=== PATIENT | female | born 1930 | race Caucasian/White ===

== ENCOUNTER → 2016-04-05 | Outpatient (CLI) | payer MEDICARE, OTHER ==
--- NOTE | 2016-04-05 11:32 | XR ---
EXAMINATION TYPE: XR chest 2V DATE OF EXAM: 04/05/2016 11:17 AM COMPARISON: Chest x-ray December 30, 2014. HISTORY: Chronic dry cough. TECHNIQUE: Frontal and lateral views of the chest are obtained. FINDINGS: There is chronic parenchymal change bilaterally without suspicious focal air space opacity , pleural effusion, or pneumothorax seen. The cardiac silhouette size is stable and mildly enlarged with atherosclerotic thoracic aorta. The osseous structures are somewhat demineralized. Soft tissue calcifications right breast are redemonstrated. IMPRESSION: Chronic changes and cardiomegaly without acute pulmonary process.
== END | disposition home or self-care (01) ==
LOC: RADXRMAIN 11:01
PROVIDERS: ATTEND Internal Medicine
DX: I51.7 Cardiomegaly (principal)
CPT/HCPCS: 71020

== ENCOUNTER 2016-04-14 09:52 | Inpatient (IN) | payer MEDICARE, OTHER ==
[2016-04-14] MEDS ORDERED: methylPREDNISolone SOD SUCCI 125 MG/2 ML VIAL IV STA (10:19)
[2016-04-14] MEDS ORDERED: ACETAMINOPHEN TAB 500 MG TAB PO STA (10:19)
[2016-04-14] MEDS ORDERED: IPRATROPIUM-ALBUTEROL 3 ML NEB INHALATION STA ×2 (10:19→11:35)
[2016-04-14] MEDS ORDERED: IBUPROFEN IV 600 MG in SODIUM CHLORIDE 0.9% 250 ML IV STA (10:21)
--- NOTE | 2016-04-14 10:23 | ED ---
General Adult HPI - General Chief complaint: Upper Respiratory Infection Stated complaint: COUGH, LEIDA Time Seen by Provider: 04/14/16 10:00 Source: patient, RN notes reviewed Mode of arrival: wheelchair Limitations: no limitations - History of Present Illness Initial comments: This is an 85-year-old female who presents emergency department with a history of diabetes. Patient comes in today because she's been coughing for the last 2- 3 days and is getting worse. Patient states she's also been short of breath. Patient states she's also coughing up quite a bit of sputum. Patient denies any chest pain or palpitations. Patient denies knowing that she has a fever though she has felt warm. Patient denies any abdominal pain patient denies any nausea vomiting or diarrhea. Patient denies any back pain. Patient denies headache patient denies any numbness weakness. Patient does states she is fatigued and very tired. Patient denies any focal weakness or numbness. Patient denies any lightheadedness or dizziness or near syncopal episode. - Related Data Allergies Allergy/AdvReac Type Severity Reaction Status Date / Time sertraline [From Zoloft] Allergy Rash/Hives Verified 04/14/16 10:03 Review of Systems ROS Statement: Those systems with pertinent positive or pertinent negative responses have been documented in the HPI. ROS Other: All systems not noted in ROS Statement are negative. Past Medical History Past Medical History: Atrial Fibrillation, Heart Failure, Diabetes Mellitus, Hyperlipidemia, Hypertension History of Any Multi-Drug Resistant Organisms: None Reported Past Surgical History: Appendectomy, Cholecystectomy, Hysterectomy Past Psychological History: Depression Smoking Status: Former smoker Past Alcohol Use History: None Reported Past Drug Use History: None Reported General Exam - General Exam Comments Initial Comments: GENERAL: Patient is well-developed and well-nourished. Patient is nontoxic and well- hydrated and is in mild distress. ENT: Neck is soft and supple. No significant lymphadenopathy is noted. Oropharynx is clear. Moist mucous membranes. Neck has full range of motion without eliciting any pain. EYES: The sclera were anicteric and conjunctiva were pink and moist. Extraocular movements were intact and pupils were equal round and reactive to light. Eyelids were unremarkable. PULMONARY: Patient is wheezing bilaterally CARDIOVASCULAR: There is a regular rate and rhythm without any murmurs gallops or rubs. ABDOMEN: Soft and nontender with normal bowel sounds. No palpable organomegaly was noted. There is no palpable pulsatile mass. SKIN: Skin is clear with no lesions or rashes and otherwise unremarkable. NEUROLOGIC: Patient is alert and oriented x3. Cranial nerves II through XII are grossly intact. Motor and sensory are also intact. Normal speech, volume and content. Symmetrical smile. MUSCULOSKELETAL: Normal extremities with adequate strength and full range of motion. No lower extremity swelling or edema. No calf tenderness. LYMPHATICS: No significant lymphadenopathy is noted PSYCHIATRIC: Normal psychiatric evaluation. Normal interpersonal interactions appears functionally intact in deals appropriately with others. No signs of depression. No signs of anxiety. Limitations: no limitations Course Vital Signs 04/14/16 04/14/16 04/14/16 09:56 10:28 10:37 Temperature 100.5 F H Pulse Rate 139 H 124 H 133 H Respiratory 20 Rate Blood Pressure 181/91 O2 Sat by Pulse 94 L Oximetry Medical Decision Making - Medical Decision Making EKG shows atrial fibrillation at 130 beats a minute QRS is 82 QT interval 08 QTC is 453. Patient's EKG shows no ST segment elevation or depression or T- wave abdomen is noted. I compared this to an old EKG aside from the right there are no acute abnormalities. I went back into reevaluate the patient and she was still wheezing but was feeling better however she was still a bit tachycardic as well and it was at this time with her age and the fact that she was already on antibiotics as an outpatient I decided to admit her I spoke with Dr. Valenzuela and he agreed to admit the patient I wrote admitting orders Chest x-ray showed no acute abnormality - Lab Data Result diagrams: 04/14/16 10:20 04/14/16 10:20 Lab Results 04/14/16 04/14/16 04/14/16 Range/Units 10:20 10:20 10:20 WBC 3.5 L (3.8-10.6) k/uL RBC 3.98 (3.80-5.40) m/uL Hgb 12.5 (11.4-16.0) gm/dL Hct 36.8 (34.0-46.0) % MCV 92.4 (80.0-100.0) fL MCH 31.3 (25.0-35.0) pg MCHC 33.9 (31.0-37.0) g/dL RDW 13.6 (11.5-15.5) % Plt Count 130 L (150-450) k/uL Neutrophils % (Manual) 73.0 % Band Neutrophils % 2.0 % Lymphocytes % (Manual) 19.0 % Monocytes % (Manual) 5.0 % Basophils % (Manual) 1.0 % Neutrophils # (Manual) 2.6 (1.3-7.7) k/uL Lymphocytes # (Manual) 0.7 L (1.0-4.8) k/uL Monocytes # (Manual) 0.2 (0-1.0) k/uL Basophils # (Manual) 0.0 (0-0.2) k/uL Nucleated RBCs 0 (0-0) /100 WBC Manual Slide Review Performed Poikilocytosis (manual Present PT (9.0-12.0) sec INR (<1.1) APTT (22.0-30.0) sec Sodium (137-145) mmol/L Potassium (3.5-5.1) mmol/L Chloride (98-107) mmol/L Carbon Dioxide (22-30) mmol/L Anion Gap mmol/L BUN (7-17) mg/dL Creatinine (0.52-1.04) mg/dL Est GFR (MDRD) Af Amer (>60 ml/min/1.73 sqM) Est GFR (MDRD) Non-Af (>60 ml/min/1.73 sqM) Glucose (74-99) mg/dL POC Glucose (mg/dL) (75-99) mg/dL POC Glu Form Layer ID Plasma Lactic Acid Mickey 1.4 (0.7-2.0) mmol/L Calcium (8.4-10.2) mg/dL Magnesium (1.6-2.3) mg/dL Total Bilirubin (0.2-1.3) mg/dL AST (14-36) U/L ALT (9-52) U/L Alkaline Phosphatase (38-126) U/L Total Creatine Kinase 137 H (30-135) U/L CK-MB (CK-2) 1.2 (0.0-2.4) ng/mL CK-MB (CK-2) Rel Index 0.9 Troponin I 0.018 (0.000-0.034) ng/mL NT-Pro-B Natriuret Pep pg/mL Total Protein (6.3-8.2) g/dL Albumin (3.5-5.0) g/dL 04/14/16 04/14/16 04/14/16 Range/Units 10:20 10:20 10:20 WBC (3.8-10.6) k/uL RBC (3.80-5.40) m/uL Hgb (11.4-16.0) gm/dL Hct (34.0-46.0) % MCV (80.0-100.0) fL MCH (25.0-35.0) pg MCHC (31.0-37.0) g/dL RDW (11.5-15.5) % Plt Count (150-450) k/uL Neutrophils % (Manual) % Band Neutrophils % % Lymphocytes % (Manual) % Monocytes % (Manual) % Basophils % (Manual) % Neutrophils # (Manual) (1.3-7.7) k/uL Lymphocytes # (Manual) (1.0-4.8) k/uL Monocytes # (Manual) (0-1.0) k/uL Basophils # (Manual) (0-0.2) k/uL Nucleated RBCs (0-0) /100 WBC Manual Slide Review Poikilocytosis (manual PT 25.1 H (9.0-12.0) sec INR 2.6 (<1.1) APTT 34.4 H (22.0-30.0) sec Sodium 129 L (137-145) mmol/L Potassium 4.5 (3.5-5.1) mmol/L Chloride 90 L (98-107) mmol/L Carbon Dioxide 27 (22-30) mmol/L Anion Gap 12 mmol/L BUN 14 (7-17) mg/dL Creatinine 0.67 (0.52-1.04) mg/dL Est GFR (MDRD) Af Amer >60 (>60 ml/min/1.73 sqM) Est GFR (MDRD) Non-Af >60 (>60 ml/min/1.73 sqM) Glucose 143 H (74-99) mg/dL POC Glucose (mg/dL) (75-99) mg/dL POC Glu Form Layer ID Plasma Lactic Acid Mickey (0.7-2.0) mmol/L Calcium 8.4 (8.4-10.2) mg/dL Magnesium 2.0 (1.6-2.3) mg/dL Total Bilirubin 1.0 (0.2-1.3) mg/dL AST 85 H (14-36) U/L ALT 45 (9-52) U/L Alkaline Phosphatase 91 (38-126) U/L Total Creatine Kinase (30-135) U/L CK-MB (CK-2) (0.0-2.4) ng/mL CK-MB (CK-2) Rel Index Troponin I (0.000-0.034) ng/mL NT-Pro-B Natriuret Pep 1520 pg/mL Total Protein 6.9 (6.3-8.2) g/dL Albumin 4.1 (3.5-5.0) g/dL /05/28 Range/Units 11:19 WBC (3.8-10.6) k/uL RBC (3.80-5.40) m/uL Hgb (11.4-16.0) gm/dL Hct (34.0-46.0) % MCV (80.0-100.0) fL MCH (25.0-35.0) pg MCHC (31.0-37.0) g/dL RDW (11.5-15.5) % Plt Count (150-450) k/uL Neutrophils % (Manual) % Band Neutrophils % % Lymphocytes % (Manual) % Monocytes % (Manual) % Basophils % (Manual) % Neutrophils # (Manual) (1.3-7.7) k/uL Lymphocytes # (Manual) (1.0-4.8) k/uL Monocytes # (Manual) (0-1.0) k/uL Basophils # (Manual) (0-0.2) k/uL Nucleated RBCs (0-0) /100 WBC Manual Slide Review Poikilocytosis (manual PT (9.0-12.0) sec INR (<1.1) APTT (22.0-30.0) sec Sodium (137-145) mmol/L Potassium (3.5-5.1) mmol/L Chloride (98-107) mmol/L Carbon Dioxide (22-30) mmol/L Anion Gap mmol/L BUN (7-17) mg/dL Creatinine (0.52-1.04) mg/dL Est GFR (MDRD) Af Amer (>60 ml/min/1.73 sqM) Est GFR (MDRD) Non-Af (>60 ml/min/1.73 sqM) Glucose (74-99) mg/dL POC Glucose (mg/dL) 161 H (75-99) mg/dL POC Glu Form Layer ID Keshav Bains Plasma Lactic Acid Mickey (0.7-2.0) mmol/L Calcium (8.4-10.2) mg/dL Magnesium (1.6-2.3) mg/dL Total Bilirubin (0.2-1.3) mg/dL AST (14-36) U/L ALT (9-52) U/L Alkaline Phosphatase (38-126) U/L Total Creatine Kinase (30-135) U/L CK-MB (CK-2) (0.0-2.4) ng/mL CK-MB (CK-2) Rel Index Troponin I (0.000-0.034) ng/mL NT-Pro-B Natriuret Pep pg/mL Total Protein (6.3-8.2) g/dL Albumin (3.5-5.0) g/dL Disposition Clinical Impression: Acute bronchitis with bronchospasm Disposition: ADMITTED IP TO THIS [facility] Time of Disposition: 11:37
[2016-04-14] MEDS ORDERED: LABETALOL SYRINGE 5 MG/ML IVP STA (10:24)
[2016-04-14 10:45] LABS: Aty Lym Flag Slight; CH 30.5; CHCM 33.2; HCT 36.8 % (34.0-46.0); HDW 2.69; HGB 12.5 gm/dL (11.4-16.0); MCH 31.3 pg (25.0-35.0); MCHC 33.9 g/dL (31.0-37.0); MCV 92.4 fL (80.0-100.0); Mean Platelet Volume 8.4; RBC 3.98 m/uL (3.80-5.40); RDW 13.6 % (11.5-15.5); WBC 3.5 k/uL (3.8-10.6); WBC (Perox) 3.62
[2016-04-14 10:51] LABS: INR 2.6 (<1.1); Partial Thromboplastin Time 34.4 sec (22.0-30.0); Prothrombin Time 25.1 sec (9.0-12.0)
[2016-04-14 10:56] LABS: Add Differential Manual Differential; Anion Gap 12 mmol/L; Calcium 8.4 mg/dL (8.4-10.2); Carbon Dioxide 27 mmol/L (22-30); Chloride 90 mmol/L (98-107); Glucose 143 mg/dL (74-99); Non-African American GFR(MDRD) >60 (>60 ml/min/1.73 sqM); Sodium 129 mmol/L (137-145); Total Protein 6.9 g/dL (6.3-8.2)
[2016-04-14 10:58] LABS: Manual Review Performed; Nucleated Red Blood Cells 0 /100 WBC (0-0); Total Cells Counted 100
[2016-04-14 10:59] LABS: ALT 45 U/L (9-52); AST 85 U/L (14-36); Alkaline Phosphatase 91 U/L (38-126); Blood Urea Nitrogen 14 mg/dL (7-17); Potassium 4.5 mmol/L (3.5-5.1)
[2016-04-14 11:18] LABS: Creatine Kinase MB 1.2 ng/mL (0.0-2.4); Troponin I 0.018 ng/mL (0.000-0.034)
[2016-04-14 11:21] LABS: Glucose,Whole Blood 161 mg/dL (75-99)
--- NOTE | 2016-04-14 11:24 | XR ---
EXAMINATION TYPE: XR chest 2V DATE OF EXAM: 04/14/2016 11:14 AM COMPARISON: NONE INDICATION: Difficulty breathing and productive cough short of breath TECHNIQUE: Single frontal view of the chest is obtained. FINDINGS: The heart size is enlarged. The pulmonary vasculature is slightly prominent. Focal consolidation is not evident. Calcifications in the right axillary region present previously. IMPRESSION: 1. Cardiomegaly with mild prominence of vascular markings. Mild volume overload may be present.
[2016-04-14] MEDS ORDERED: SODIUM CHLORIDE 0.9% 1,000 ML IV ONE (11:37)
[2016-04-14] MEDS ORDERED: IPRATROPIUM-ALBUTEROL 3 ML NEB INHALATION PRN (11:38)
[2016-04-14] MEDS ORDERED: AZITHROMYCIN 500 MG in SODIUM CHLORIDE 0.9% 250 ML IVPB STA (11:39)
--- NOTE | 2016-04-14 13:49 | P.HPIM ---
History of Present Illness Chief complaint: Cough which shortness of breath. History of present illness: The patient is an 85-year-old female who is had increasing cough and congestion with wheezing at home, chest tightness with discomfort and increasing shortness of breath. This morning it was so bad family thought she was going to pass out and patient could not get up out of bed. Patient states she has been bringing up a lot of mucus but no hemoptysis. At times she has felt warm but no definite fever or chills associated with this. Patient started oral prednisone and cephalexin but did not improve symptoms. Patient is a former smoker. Past medical history: 1. The patient does have history of smoking and underlying COPD. Although she quit smoking many years ago. 2. Patient with type 2 diabetes and hypercholesterolemia 3. Hypercholesterolemia 4. Hypertension with hypertensive heart disease 5. Hypothyroidism 6. Atrial fibrillation chronic with fast ventricular response on Coumadin. 7. Coronary artery disease. Surgical history: Positive for hysterectomy and cholecystectomy. Medications: Apparently patient developed facial rash from Zoloft. Also has food ALLERGIES to milk and tomatoes area Home medications: Precose 50 mg twice a day Glipizide XL 10 mg twice a day Coumadin 5 mg on and Sundays. 7.5 mg other days of the week Metoprolol 50 mg daily Melatonin 2.5 at at bedtime Losartan 100 mg daily Levothyroxine 75 g daily Lasix 20 mg daily Nexium 40 mg daily Lanoxin 125 g daily Lipitor 20 mg at at bedtime Xanax 0.25 twice a day Patient does take multiple types of vitamins on a regular basis and probiotic. Review of systems: Patient denies any unusual headache. No definite nausea or vomiting. She denies any new urinary or bowel symptoms. No unusual leg edema. No visual disturbances. Rest as in history of present illness. No definite angina type pain. Family history: The patient has a sister with liver cancer and a brother who had bone cancer. Also sister that had asthma. Diabetes and coronary artery disease runs in the family. Social history: Patient has been for several years now. She apparently lives on her own with her son. She has quit smoking many years ago. There is no history of any excessive alcohol intake. Physical examination: Patient is lying in bed. Coughing frequently. Prolonged expiratory phase with use of accessory muscles. Vital signs reveal temperature of 99.2 with a pulse of 92, irregular. Respiratory rate of 18. Blood pressure 140/65 and she is 97% saturated on 2 L. Head is atraumatic. HEENT is unremarkable with extraocular movements intact. Neck supple without adenopathy or thyromegaly detected. Lungs reveal some diffuse inspiratory wheezing without rales or rhonchi. Heart tones were somewhat distant and slightly irregular but no murmurs or rubs. Abdomen is obese but nontender. No organomegaly or masses. Breast exam and rectal and pelvic exam deferred. Extremities revealed no edema. Neurologically she appears intact. Alert and oriented. Cranial nerves intact. No focal weakness noted. Laboratory: White count is 3.5 with a hemoglobin 12.5 and a platelet count of 130. INR is 2.6. Sodium 129 with a potassium of 4.5. Blood urea nitrogen is 14 with a creatinine 0.67 given her GFR greater than 60. Blood sugar 143. Mildly elevated AST of 85 with otherwise normal liver function testing. Albumin 4.1. CK was mildly elevated at 137 with a normal CK-MB. Troponin normal at 0.018. BNP 1520. Chest x-ray showed some cardiomegaly and some mild volume overload with prominent vascular markings. EKG showed atrial fibrillation with a rapid ventricular response of 130. Impressions and plans: 1. Exacerbation of COPD with asthmatic bronchitis and wheezing. 2. Hyponatremia 3. Atrial fibrillation chronic with a rapid ventricular response. 4. Acute on chronic congestive heart failure with diastolic dysfunction pending echocardiogram. Other comorbidities as listed in the history and present illness. Plans: The patient will be admitted and placed on antibiotics along with corticosteroids and respiratory treatments. Continue her medications for her underlying comorbidities, hypertension and diabetes. Digoxin level and thyroid function to be evaluated. Accu-Cheks to coverage. Further recommendations and treatment pending clinical response and results of above as discussed with patient and family at bedside. Past Medical History Past Medical History: Atrial Fibrillation, Heart Failure, Diabetes Mellitus, Hyperlipidemia, Hypertension History of Any Multi-Drug Resistant Organisms: None Reported Past Surgical History: Appendectomy, Cholecystectomy, Hysterectomy Past Psychological History: Depression Smoking Status: Former smoker Past Alcohol Use History: None Reported Past Drug Use History: None Reported Medications and Allergies Home Medications Medication Instructions Recorded Confirmed Type ALPRAZolam [Xanax] 0.25 mg PO BID 04/14/16 04/14/16 History Acarbose 50 mg PO BID 04/14/16 04/14/16 History Ascorbic Acid [Vitamin C] 500 mg PO DAILY 04/14/16 04/14/16 History Atorvastatin [Lipitor] 20 mg PO HS 04/14/16 04/14/16 History Biotin 5 mg PO DAILY 04/14/16 04/14/16 History Cephalexin [Keflex] 500 mg PO TID 04/14/16 04/14/16 History Digoxin [Lanoxin] 125 mcg PO DAILY 04/14/16 04/14/16 History Esomeprazole Magnesium [NexIUM] 40 mg PO DAILY 04/14/16 04/14/16 History Furosemide [Lasix] 20 mg PO DAILY 04/14/16 04/14/16 History Gluc/Grayson-MSM#1/C/Issac/Martínez/Bor 1 tab PO DAILY 04/14/16 04/14/16 History [Glucosamine-Chondroitin Tablet] Hydrocortisone Cream 1 applic TOPICAL BID 04/14/16 04/14/16 History [Hydrocortisone 2.5% Cream] L.acidoph,Paracasei, B.lactis 1 cap PO DAILY 04/14/16 04/14/16 History [Probiotic] Levothyroxine Sodium [Synthroid] 75 mcg PO DAILY 04/14/16 04/14/16 History Losartan Potassium 100 mg PO DAILY 04/14/16 04/14/16 History Lutein 10 mg PO DAILY 04/14/16 04/14/16 History Melatonin 2.5mg 2.5 mg PO HS 04/14/16 04/14/16 History Metoprolol Succinate (ER) [Toprol 50 mg PO DAILY 04/14/16 04/14/16 History Xl] Multivitamins, Thera [Multivitamin] 1 tab PO DAILY 04/14/16 04/14/16 History Cicero-3 Fatty Acids/Fish Oil [Fish 1 cap PO DAILY 04/14/16 04/14/16 History Oil 1,000 mg Softgel] Warfarin [Coumadin] 5 mg PO SUTH 04/14/16 04/14/16 History Warfarin [Coumadin] 7.5 mg PO MOTUWEFRSA 04/14/16 04/14/16 History glipiZIDE XL [Glucotrol Xl] 10 mg PO BID 04/14/16 04/14/16 History Allergies Allergy/AdvReac Type Severity Reaction Status Date / Time milk Allergy Unknown Verified 04/14/16 12:22 sertraline [From Zoloft] Allergy Rash/Hives Verified 04/14/16 12:22 tomato Allergy Unknown Verified 04/14/16 12:22 Physical Exam Vitals: Vital Signs Temp Pulse Resp BP Pulse Ox 04/14/16 12:34 92 16 140/65 97 04/14/16 12:09 99.2 F 04/14/16 12:02 98 18 147/72 98 04/14/16 11:53 98 04/14/16 11:42 83 Results CBC & Chem 7: 04/14/16 10:20 04/14/16 10:20
[2016-04-14 17:11] LABS: Glucose,Whole Blood 289 mg/dL (75-99)
[2016-04-14] MEDS: glipiZIDE 10 MG TAB PO SCH (17:26)
[2016-04-14] MEDS: ACARBOSE 25 MG TAB PO SCH (17:30)
[2016-04-14] MEDS: WARFARIN 7.5 MG TAB PO SCH (17:30)
[2016-04-14] MEDS ORDERED: INSULIN LISPRO (humaLOG) 300 UNIT/3 ML VIAL SQ SCH (17:30)
[2016-04-14] MEDS: methylPREDNISolone SOD SUCCI 125 MG/2 ML VIAL IV SCH ×2 (17:31→23:38)
[2016-04-14] MEDS: INSULIN LISPRO (humaLOG) 300 UNIT/3 ML VIAL SQ SCH ×2 (18:02→20:54)
[2016-04-14 20:10] LABS: Glucose,Whole Blood 332 mg/dL (75-99)
[2016-04-14] MEDS: MELATONIN 5 MG TABLET PO SCH (20:52)
[2016-04-14] MEDS: ATORVASTATIN 20 MG TAB PO SCH (20:52)
[2016-04-14] MEDS: ALPRAZolam 0.25 MG TAB PO SCH (20:52)
[2016-04-14] MEDS: TRIAMCINOLONE 0.1% CREAM 80 GM TUBE TOPICAL SCH ×2 (20:55→21:32)
[2016-04-15] MEDS: methylPREDNISolone SOD SUCCI 125 MG/2 ML VIAL IV SCH ×4 (05:42→22:52)
[2016-04-15] MEDS: LEVOTHYROXINE 75 MCG TAB PO SCH (05:42)
[2016-04-15 07:02] LABS: Glucose,Whole Blood 259 mg/dL (75-99)
[2016-04-15 07:27] LABS: INR 4.4 (<1.1); Prothrombin Time 43.6 sec (9.0-12.0)
[2016-04-15] MEDS: INSULIN LISPRO (humaLOG) 300 UNIT/3 ML VIAL SQ SCH ×4 (07:58→21:55)
[2016-04-15] MEDS: PANTOPRAZOLE 40 MG TABLET PO SCH (07:58)
[2016-04-15] MEDS: glipiZIDE 10 MG TAB PO SCH ×2 (07:58→18:21)
[2016-04-15 08:02] LABS: Anion Gap 10 mmol/L; Blood Urea Nitrogen 18 mg/dL (7-17); Calcium 8.4 mg/dL (8.4-10.2); Carbon Dioxide 24 mmol/L (22-30); Chloride 95 mmol/L (98-107); Digoxin 0.7 ng/mL; Glucose 251 mg/dL (74-99); Non-African American GFR(MDRD) >60 (>60 ml/min/1.73 sqM); Potassium 5.1 mmol/L (3.5-5.1); Sodium 129 mmol/L (137-145)
[2016-04-15] MEDS: DIGOXIN 125 MCG TAB PO SCH (08:15)
[2016-04-15] MEDS: LACTOBACILLUS ACIDOPH & BULGAR 1 EACH PACKET PO SCH (08:15)
[2016-04-15] MEDS: ALPRAZolam 0.25 MG TAB PO SCH ×2 (08:15→21:55)
[2016-04-15] MEDS: AZITHROMYCIN 500 MG TAB PO SCH (08:15)
[2016-04-15] MEDS: LOSARTAN 50 MG TAB PO SCH (08:15)
[2016-04-15] MEDS: ACARBOSE 25 MG TAB PO SCH ×2 (08:15→18:23)
[2016-04-15] MEDS: FUROSEMIDE 20 MG TAB PO SCH (08:15)
[2016-04-15] MEDS: ASCORBIC ACID 500 MG TAB PO SCH (08:15)
[2016-04-15] MEDS: TRIAMCINOLONE 0.1% CREAM 80 GM TUBE TOPICAL SCH ×2 (08:16→21:56)
--- NOTE | 2016-04-15 08:57 | P.PN ---
Progress Note - Text The patient is an 85-year-old female who is a former smoker with COPD presented to the emergency room yesterday with shortness of breath and cough associated with wheezing. She was also in atrial fibrillation which is chronic but with a heart rate of 130. Presently she has received corticosteroids along with respiratory treatments and her maintenance medications. She is sitting up in bed and states she still feels very weak, shaky and short of breath with minimal exertion. She denies any unusual chest pain. No nausea or vomiting. Vitals reveal temperature of 94.4 with a pulse of 78 and respirations 18. Blood pressure 159/102 and her O2 saturation is 100 on 2 L nasal cannula. She does seem to be less short of breath this morning with less use of accessory muscles. Lungs do reveal bilateral and anterior and posterior expiratory wheeze. Heart tones are distant but rate is better controlled. Abdomen nontender. No unusual edema. She is alert and oriented. Cranial nerves intact. No focal weakness noted. Laboratory values revealed an INR this morning of 4.4. Sodium remains slightly low at 129 with a potassium of 5.1. Blood sugars are elevated at 251. Trending downward as she is back on her medications and Accu- Cheks and coverage. Impressions and plans: At this time with her continued wheeze although improved we will continue her corticosteroids at present dosage along with her respiratory treatments. Discussed with patient and nursing staff this morning. We will hold her Coumadin and repeat INR. Physical therapy to evaluate and treat. Patient does live at home with family but mostly takes care of herself.
[2016-04-15] MEDS ORDERED: METOPROLOL SUCCINATE (ER) 50 MG TAB.ER.24H PO SCH (09:00)
[2016-04-15] MEDS ORDERED: NON-FORMULARY DRUG (Omega-3 Fatty Acids/Fish Oil [Fish Oil 1,000 Mg Softgel] 1 CAP) PO SCH (09:00)
[2016-04-15] MEDS ORDERED: NON-FORMULARY DRUG (Biotin [Biotin] 5 MG) PO SCH (09:00)
[2016-04-15] MEDS ORDERED: NON-FORMULARY DRUG (Lutein [Lutein] 10 MG) PO SCH (09:00)
[2016-04-15] MEDS ORDERED: NON-FORMULARY DRUG (Gluc/Chon-Msm#1/C/Mang/Bos/Bor [Glucosamine-Chondroitin Tablet] 1 TAB) PO SCH (09:00)
[2016-04-15 11:23] LABS: Glucose,Whole Blood 302 mg/dL (75-99)
[2016-04-15] MEDS: MULTIVITAMINS, THERA 1 EACH TAB PO SCH (13:10)
--- NOTE | 2016-04-15 15:27 | ECHOF ---
Referral Reason:SOB/CHF MEASUREMENTS -------- HEIGHT: 157.5 cm WEIGHT: 80.7 kg BP: 140/65 RVIDd: 3.2 cm (< 3.3) IVSd: 1.2 cm (0.6 - 1.1) LVIDd: 3.1 cm (3.9 - 5.3) LVPWd: 1.4 cm (0.6 - 1.1) IVSs: 1.5 cm LVIDs: 2.2 cm LVPWs: 2.1 cm LA Diam: 3.6 cm (2.7 - 3.8) LAESV Index (A-L): 35.78 ml/m Ao Diam: 2.8 cm (2.0 - 3.7) AV Cusp: 1.4 cm (1.5 - 2.6) LA Diam: 4.2 cm (2.7 - 3.8) MV EXCURSION: 10.412 mm (> 18.000) MV EF SLOPE: 59 mm/s (70 - 150) EPSS: 0.5 cm AV maxP.06 mmHg AV meanP.44 mmHg RAP: 15.00 mmHg RVSP: 53.56 mmHg FINDINGS -------- Atrial fibrillation. This was a technically good study. There is mild concentric left ventricular hypertrophy. Overall left ventricular systolic function is normal with, an EF between 55 - 60 %. The right ventricle is mildly enlarged. LA is moderately dilated 34-39 ml/m2 The right atrium is normal in size. Aortic valve is trileaflet and is moderately thickened. Peak/mean gradient across the Aortic Valve is 17.06mmHg / 8.44mmHg. The mitral valve leaflets are mildly thickened. Mild mitral annular calcification present. Mild mitral regurgitation is present. Moderate tricuspid regurgitation present. There is moderate pulmonary hypertension. The right ventricular systolic pressure, as measured by Doppler, is 53.56mmHg. The pulmonic valve was not well visualized. The aortic root size is normal. The inferior vena cava is dilated with poor inspiratory collapse which is consistent with estimated right atrial pressure of 15mmHg. Echo free space may represent effusion or a pericardial fat pad. CONCLUSIONS -------- 1. Atrial fibrillation. 2. The mitral valve leaflets are mildly thickened. 3. Mild mitral annular calcification present. 4. Mild mitral regurgitation is present. 5. Moderate tricuspid regurgitation present. 6. There is moderate pulmonary hypertension. 7. The right ventricular systolic pressure, as measured by Doppler, is 53.56mmHg. 8. The pulmonic valve was not well visualized. 9. The aortic root size is normal. 10. The inferior vena cava is dilated with poor inspiratory collapse which is consistent with estimated right atrial pressure of 15mmHg. 11. Echo free space may represent effusion or a pericardial fat pad. 12. This was a technically good study. 13. There is mild concentric left ventricular hypertrophy. 14. Overall left ventricular systolic function is normal with, an EF between 55 - 60 %. 15. The right ventricle is mildly enlarged. 16. LA is moderately dilated 34-39 ml/m2 17. The right atrium is normal in size. 18. Aortic valve is trileaflet and is moderately thickened. 19. Peak/mean gradient across the Aortic Valve is 17.06mmHg / 8.44mmHg. UMBRELLA CUTTER: Alexandra Bruner RDCS
[2016-04-15 17:18] LABS: Glucose,Whole Blood 205 mg/dL (75-99)
[2016-04-15] MEDS ORDERED: WARFARIN 5 MG TAB PO SCH (18:00)
[2016-04-15] MEDS: IPRATROPIUM-ALBUTEROL 3 ML NEB INHALATION SCH (19:12)
[2016-04-15 20:21] LABS: Glucose,Whole Blood 225 mg/dL (75-99)
[2016-04-15] MEDS: METOPROLOL SUCCINATE (ER) 50 MG TAB.ER.24H PO SCH (21:24)
[2016-04-15] MEDS ORDERED: DILTIAZEM 125 MG in SODIUM CHLORIDE 0.9% 100 ML IV SCH (21:45)
[2016-04-15] MEDS: ATORVASTATIN 20 MG TAB PO SCH (21:55)
[2016-04-15] MEDS: MELATONIN 5 MG TABLET PO SCH (21:55)
[2016-04-15] MEDS: OSELTAMIVIR 75 MG CAP PO SCH (21:56)
[2016-04-16] MEDS: IPRATROPIUM-ALBUTEROL 3 ML NEB INHALATION SCH ×7 (00:16→23:36)
[2016-04-16 06:27] LABS: Glucose,Whole Blood 252 mg/dL (75-99)
[2016-04-16] MEDS: INSULIN LISPRO (humaLOG) 300 UNIT/3 ML VIAL SQ SCH ×4 (06:42→20:57)
[2016-04-16] MEDS: PANTOPRAZOLE 40 MG TABLET PO SCH (06:53)
[2016-04-16] MEDS: LEVOTHYROXINE 75 MCG TAB PO SCH (06:53)
[2016-04-16] MEDS: methylPREDNISolone SOD SUCCI 125 MG/2 ML VIAL IV SCH (06:53)
--- NOTE | 2016-04-16 07:55 | P.PN ---
Progress Note - Text The patient is a 85-year-old female who is a former smoker with COPD and presented to the emergency room 2 days ago which shortness of breath, cough and wheezing. She was also found to be in chronic atrial fibrillation but her heart rate was elevated and in fact yesterday on the general medical floor her heart rate had been up to 150. She was also found to be positive for influenza virus. Patient has been treated with antiviral, antibiotics and corticosteroids. From the respiratory point she is doing better. She was also placed on a Cardizem drip during the night. This morning she states she is breathing better. Denies any chest pain. Vital signs reveal a pulse now 73 and atrial fibrillation on the monitor. Respiratory rate is 16. Blood pressure 117/67 and she is 98% saturated on 2 L nasal cannula. Last temperature is 97.7. Head and neck exam unremarkable Lungs do reveal some diffuse inspiratory wheeze, improved from yesterday. Heart tones are distant and irregular but better controlled. Abdomen soft and nontender. No edema. No new neurological changes. Labs Blood sugar remains in the mid to low 200s. Positive for influenza A. A cardiogram revealed a ejection fraction of 55-60%. And normal size left atrium. Impressions and plans: Overall this 85-year-old female with exacerbation of COPD with asthmatic bronchitis associated with influenza type A virus is slowly improving on corticosteroids, respiratory treatments along with antivirals and anti- bacterial agents. Appears her heart rate is better controlled with the Cardizem drip. Patient's Coumadin was held yesterday because of an elevated INR at 4. Labs be repeated tomorrow. Cardiology consult regarding treatment and control of her atrial fibrillation that is chronic. Patient is on Coumadin. Discussed with patient at bedside.
[2016-04-16] MEDS: ACARBOSE 25 MG TAB PO SCH ×2 (08:18→17:02)
[2016-04-16] MEDS: ALPRAZolam 0.25 MG TAB PO SCH ×2 (08:18→20:57)
[2016-04-16] MEDS: FUROSEMIDE 20 MG TAB PO SCH (08:19)
[2016-04-16] MEDS: ASCORBIC ACID 500 MG TAB PO SCH (08:19)
[2016-04-16] MEDS: AZITHROMYCIN 500 MG TAB PO SCH (08:19)
[2016-04-16] MEDS: DIGOXIN 125 MCG TAB PO SCH (08:19)
[2016-04-16] MEDS: LOSARTAN 50 MG TAB PO SCH (08:20)
[2016-04-16] MEDS: LACTOBACILLUS ACIDOPH & BULGAR 1 EACH PACKET PO SCH (08:20)
[2016-04-16] MEDS: glipiZIDE 10 MG TAB PO SCH ×2 (08:20→17:02)
[2016-04-16] MEDS: OSELTAMIVIR 75 MG CAP PO SCH ×2 (08:21→20:58)
[2016-04-16 10:12] LABS: Mis test requested (Blood) PT/INR
[2016-04-16 11:37] LABS: Glucose,Whole Blood 258 mg/dL (75-99)
--- NOTE | 2016-04-16 12:32 | P.CRDCN ---
History of Present Illness Consult date: 04/16/16 Requesting physician: Reza Valenzuela Consult reason: atrial fibrillation Chief complaint: Cough and Shortness of Breath History of present illness: This is a pleasant 85-year-old female who follows regularly with Dr. Whitaker in the office. She has a known history of chronic persistent atrial fibrillation, on Coumadin, history of smoking, COPD, diabetes, hyperlipidemia, hypertension, hypothyroidism, presented to the hospital with symptoms of persistent cough with productive sputum production, as well as the congestion, body aches and mild fever. She did rule in for influenza A. EKG on arrival here showed atrial fibrillation with a rapid ventricular response. Chest x-ray on admission revealed cardiomegaly with mild prominence of vascular markings. Echocardiogram with Doppler study was performed which revealed an ejection fraction of 55-60%. Blood pressure 148/70 with a heart rate in the 70s 100% on 2 L of oxygen. Laboratory data, WBC 3.5, hemoglobin 12.5, platelet count 130, INR 4.4. Sodium 129, potassium 5.1, BUN 18, creatinine 0.6. Magnesium level II.0, troponin 0.018, BNP 1520, TSH 2.5, dig level 0.7, influenza A+. At the time of my examination this morning, patient continues to have persistent productive cough. Eyes any overt shortness of breath.She is currently on a Cardizem drip at 5 mg per hour. Past Medical History Past Medical History: Atrial Fibrillation, Heart Failure, Diabetes Mellitus, Hyperlipidemia, Hypertension History of Any Multi-Drug Resistant Organisms: None Reported Past Surgical History: Appendectomy, Cholecystectomy, Hysterectomy Past Anesthesia/Blood Transfusion Reactions: No Reported Reaction Past Psychological History: Depression Smoking Status: Former smoker Past Alcohol Use History: None Reported Past Drug Use History: None Reported - Past Family History Father Family Medical History: Asthma Mother Family Medical History: Diabetes Mellitus Additional Family Medical History / Comment(s): mother at 62 Medications and Allergies Home Medications Medication Instructions Recorded Confirmed Type ALPRAZolam [Xanax] 0.25 mg PO BID 04/14/16 04/14/16 History Acarbose 50 mg PO BID-W/MEALS 04/14/16 04/14/16 History Ascorbic Acid [Vitamin C] 500 mg PO DAILY 04/14/16 04/14/16 History Atorvastatin [Lipitor] 20 mg PO HS 04/14/16 04/14/16 History Biotin 5 mg PO DAILY 04/14/16 04/14/16 History Cephalexin [Keflex] 500 mg PO TID 04/14/16 04/14/16 History Digoxin [Lanoxin] 125 mcg PO DAILY 04/14/16 04/14/16 History Esomeprazole Magnesium [NexIUM] 40 mg PO DAILY 04/14/16 04/14/16 History Furosemide [Lasix] 20 mg PO DAILY 04/14/16 04/14/16 History Gluc/Grayson-MSM#1/C/Issac/Martínez/Bor 1 tab PO DAILY 04/14/16 04/14/16 History [Glucosamine-Chondroitin Tablet] Hydrocortisone Cream 1 applic TOPICAL BID 04/14/16 04/14/16 History [Hydrocortisone 2.5% Cream] L.acidoph,Paracasei, B.lactis 1 cap PO DAILY 04/14/16 04/14/16 History [Probiotic] Levothyroxine Sodium [Synthroid] 75 mcg PO DAILY 04/14/16 04/14/16 History Losartan Potassium 100 mg PO DAILY 04/14/16 04/14/16 History Lutein 10 mg PO DAILY 04/14/16 04/14/16 History Melatonin 2.5mg 2.5 mg PO HS 04/14/16 04/14/16 History Metoprolol Succinate (ER) [Toprol 50 mg PO W/SUPPER 04/14/16 04/14/16 History Xl] Multivitamins, Thera [Multivitamin] 1 tab PO DAILY 04/14/16 04/14/16 History Petroleum-3 Fatty Acids/Fish Oil [Fish 1 cap PO DAILY 04/14/16 04/14/16 History Oil 1,000 mg Softgel] Warfarin [Coumadin] 5 mg PO SUTH 04/14/16 04/14/16 History Warfarin [Coumadin] 7.5 mg PO MOTUWEFRSA 04/14/16 04/14/16 History glipiZIDE XL [Glucotrol Xl] 10 mg PO AC-BID 04/14/16 04/14/16 History Allergies Allergy/AdvReac Type Severity Reaction Status Date / Time milk Allergy Unknown Verified 04/14/16 12:22 sertraline [From Zoloft] Allergy Rash/Hives Verified 04/14/16 12:22 tomato Allergy Unknown Verified 04/14/16 12:22 Physical Exam Vitals: Vital Signs Temp Pulse Pulse Resp BP Pulse Ox 04/16/16 08:08 74 04/16/16 08:00 97.0 F L 83 16 148/79 100 04/16/16 07:51 70 04/16/16 04:10 73 04/16/16 04:00 83 16 117/67 98 04/16/16 03:56 76 04/16/16 00:28 80 04/16/16 00:19 73 04/15/16 23:24 78 16 130/67 98 04/15/16 20:57 157 H 18 04/15/16 20:33 157 H 157/78 100 04/15/16 19:27 88 04/15/16 19:12 92 04/15/16 16:00 97.7 F 94 18 144/82 100 04/15/16 15:59 16 04/15/16 15:06 60 04/15/16 14:53 60 Intake and Output 04/15/16 04/16/16 04/16/16 22:59 06:59 14:59 Intake Total 150 580 Balance 150 580 Intake: IV 150 Sodium Chloride 0.9% 1, 150 000 ml @ 75 mls/hr IV . [id number] Rx#:[id number] Oral 580 Other: Voiding Method Toilet Toilet Toilet # Voids 3 1 Weight 86.1 kg PHYSICAL EXAMINATION: HEENT: Head is atraumatic, normocephalic. Pupils equal, round. Neck is supple. There is no elevated jugular venous pressure. HEART EXAMINATION: S1 and S2 irregularly irregular a systolic murmur is heard. CHEST EXAMINATION: Lungs reveal scattered coarse rhonchi and wheezes throughout. ABDOMEN: Soft, nontender. Bowel sounds are heard. No organomegaly noted. EXTREMITIES: 2+ peripheral pulses with trace evidence of peripheral edema and no calf tenderness noted. NEUROLOGIC patient is awake, alert and oriented -3. . Results 04/14/16 10:20 04/15/16 06:46 Coagulation 04/16/16 Range/Units 06:56 PT (9.0-12.0) sec Current Medications Generic Name Dose Route Start Last Admin Trade Name Freq PRN Reason Stop Dose Admin Acarbose 50 mg 04/14/16 21:00 04/16/16 08:18 Precose PO 50 mg BID FAISAL Administration Albuterol/Ipratropium 3 ml 04/14/16 11:38 04/15/16 14:51 Duoneb 0.5 Mg-3 Mg/3 Ml Soln INHALATION 3 ml RT-QID PRN Administration Shortness Of Breath Or Wheezing Albuterol/Ipratropium 3 ml 04/15/16 20:00 04/16/16 12:03 Duoneb 0.5 Mg-3 Mg/3 Ml Soln INHALATION Not Given RT-Q4H FAISAL Alprazolam 0.25 mg 04/14/16 21:00 04/16/16 08:18 Xanax PO 0.25 mg BID FAISAL Administration Ascorbic Acid 500 mg 04/15/16 09:00 04/16/16 08:19 Vitamin C PO 500 mg DAILY FAISAL Administration Atorvastatin Calcium 20 mg 04/14/16 21:00 04/15/16 21:55 Lipitor PO 20 mg HS FAISAL Administration Azithromycin 500 mg 04/15/16 09:00 04/16/16 08:19 Zithromax PO 500 mg DAILY FAISAL Administration Digoxin 125 mcg 04/15/16 09:00 04/16/16 08:19 Lanoxin PO 125 mcg DAILY FAISAL Administration Furosemide 20 mg 04/15/16 09:00 04/16/16 08:19 Lasix PO 20 mg DAILY FAISAL Administration Glipizide 10 mg 04/14/16 21:00 04/16/16 08:20 Glucotrol PO 10 mg BID FAISAL Administration Ceftriaxone Sodium 1,000 mg/ 50 mls @ 100 mls/hr 04/15/16 09:00 04/16/16 08: 19 Sodium Chloride IVPB 100 mls/hr Q24HR FAISAL Administration Diltiazem HCl 125 mg/ Sodium 125 mls @ 5 mls/hr 04/15/16 21:45 04/15/16 22:23 Chloride IV 5 mg/hr .Q24H FAISAL 5 mls/hr 5 MG/HR Administration Insulin Human Lispro 0 unit 04/14/16 18:00 04/16/16 06:42 Humalog SQ 8 unit ACHS FAISAL Administration Protocol Lactobacillus Acidoph/Bulgaricus 1 each 04/15/16 09:00 04/16/16 08:20 Lactinex PO 1 each DAILY FAISAL Administration Levothyroxine Sodium 75 mcg 04/15/16 06:30 04/16/16 06:53 Synthroid PO 75 mcg DAILY@0630 FAISAL Administration Losartan Potassium 100 mg 04/15/16 09:00 04/16/16 08:20 Cozaar PO 100 mg DAILY FAISAL Administration Melatonin 2.5 mg 04/14/16 21:00 04/15/16 21:55 Melatonin PO 2.5 mg HS FAISAL Administration Metoprolol Succinate 50 mg 04/15/16 21:00 04/15/16 21:24 Toprol Xl PO 50 mg HS FAISAL Administration Multivitamins 1 each 04/15/16 12:00 04/15/16 13:10 Theragran PO 1 each DAILY@1200 FAISAL Administration Oseltamivir Phosphate 75 mg 04/15/16 21:00 04/16/16 08:21 Tamiflu PO 04/20/16 09:01 75 mg Q12HR FAISAL Administration Pantoprazole Sodium 40 mg 04/15/16 07:30 04/16/16 06:53 Protonix PO 40 mg AC-[id number] FAISAL Administration Prednisone 40 mg 04/16/16 12:00 PO DAILY [facility] Triamcinolone Acetonide 1 applic 04/14/16 21:00 04/15/16 21:56 Kenalog TOPICAL 1 applic BID FAISAL Administration Warfarin Sodium 5 mg 04/15/16 18:00 Coumadin PO SUTH [facility] Warfarin Sodium 7.5 mg 04/14/16 18:00 04/14/16 17:30 Coumadin PO 7.5 mg MOTUWEFRSA FAISAL Administration Intake and Output 04/15/16 04/16/16 04/16/16 22:59 06:59 14:59 Intake Total 150 580 Balance 150 580 Intake: IV 150 Sodium Chloride 0.9% 1, 150 000 ml @ 75 mls/hr IV . [id number] ONE Rx#:[id number] Oral 580 Other: Voiding Method Toilet Toilet Toilet # Voids 3 1 Weight 86.1 kg 04/15/16 06:46 EKG Interpretations (text) EKG shows atrial fibrillation with rapid ventricular response Assessment and Plan Plan: Assessment and plan #1 symptoms of productive cough of green sputum with associated fever, exacerbation of COPD with associated tracheobronchitis. Positive influenza A. #2 atrial fibrillation with rapid ventricular response, currently on Cardizem drip at 5 #3 History of chronic persistent atrial fibrillation, on Coumadin for anticoagulation, INR today 4.4 likely secondary to being on IV antibiotics #4 hypertension #5 hyperlipidemia #6 diabetes #7 prior history of smoking #8 hyponatremia, sodium 129 #9 mild congestive cardiac failure, diastolic in nature. Acute on chronic Plan Echo cardiogram with Doppler study was performed which revealed moderate tricuspid regurgitation, moderate pulmonary hypertension, normal left ventricular systolic function with an ejection fraction of 55-60%. We will hold the patient's Coumadin check daily PT/INRs. Discontinue IV Cardizem and increase dose of beta ward. Further recommendations to follow. DNP note has been reviewed, I agree with a documented findings and plan of care. Patient was seen and examined.
[2016-04-16] MEDS: predniSONE 20 MG TAB PO SCH (13:21)
[2016-04-16] MEDS: TRIAMCINOLONE 0.1% CREAM 80 GM TUBE TOPICAL SCH ×2 (13:21→20:59)
[2016-04-16] MEDS: MULTIVITAMINS, THERA 1 EACH TAB PO SCH (13:22)
[2016-04-16 14:07] VITALS: BMI 34.7
[2016-04-16 16:34] LABS: Glucose,Whole Blood 166 mg/dL (75-99)
[2016-04-16 16:39] LABS: Glucose,Whole Blood 228 mg/dL (75-99)
[2016-04-16 20:43] LABS: Glucose,Whole Blood 241 mg/dL (75-99)
[2016-04-16] MEDS: ATORVASTATIN 20 MG TAB PO SCH (20:57)
[2016-04-16] MEDS: MELATONIN 5 MG TABLET PO SCH (20:58)
[2016-04-16] MEDS: METOPROLOL SUCCINATE (ER) 50 MG TAB.ER.24H PO SCH (20:59)
[2016-04-17] MEDS: IPRATROPIUM-ALBUTEROL 3 ML NEB INHALATION SCH ×5 (03:39→20:34)
[2016-04-17 05:59] LABS: Glucose,Whole Blood 112 mg/dL (75-99)
[2016-04-17] MEDS: INSULIN LISPRO (humaLOG) 300 UNIT/3 ML VIAL SQ SCH ×4 (06:29→22:09)
[2016-04-17 06:34] LABS: Basophils % (A) 0 %; CH 30.8; Eosinophils % (A) 0 %; HCT 34.1 % (34.0-46.0); HDW 2.62; HGB 11.6 gm/dL (11.4-16.0); Luc # (Auto) 0.09; Luc % (Auto) 2; Lymphocytes # (A) 0.7 k/uL (1.0-4.8); Lymphocytes % (A) 16 %; MCH 30.9 pg (25.0-35.0); Mean Platelet Volume 8.5; Monocytes # (A) 0.4 k/uL (0-1.0); Monocytes % (A) 8 %; Neutrophils # (A) 3.4 k/uL (1.3-7.7); Neutrophils % (A) 74 %; RBC 3.74 m/uL (3.80-5.40); RDW 13.7 % (11.5-15.5); WBC 4.6 k/uL (3.8-10.6); WBC (Perox) 4.24
[2016-04-17 06:37] LABS: INR 4.9 (<1.1)
[2016-04-17] MEDS: PANTOPRAZOLE 40 MG TABLET PO SCH (06:38)
[2016-04-17] MEDS: LEVOTHYROXINE 75 MCG TAB PO SCH (06:38)
[2016-04-17 07:03] LABS: ALT 42 U/L (9-52); AST 36 U/L (14-36); Alkaline Phosphatase 63 U/L (38-126); Anion Gap 7 mmol/L; Blood Urea Nitrogen 21 mg/dL (7-17); Calcium 8.5 mg/dL (8.4-10.2); Carbon Dioxide 28 mmol/L (22-30); Chloride 95 mmol/L (98-107); Glucose 118 mg/dL (74-99); Non-African American GFR(MDRD) >60 (>60 ml/min/1.73 sqM); Potassium 4.4 mmol/L (3.5-5.1); Sodium 130 mmol/L (137-145); Total Bilirubin 0.4 mg/dL (0.2-1.3); Total Protein 5.3 g/dL (6.3-8.2)
[2016-04-17] MEDS: ACARBOSE 25 MG TAB PO SCH ×2 (07:47→17:18)
[2016-04-17] MEDS: glipiZIDE 10 MG TAB PO SCH ×2 (07:48→17:18)
[2016-04-17] MEDS: LACTOBACILLUS ACIDOPH & BULGAR 1 EACH PACKET PO SCH (07:49)
--- NOTE | 2016-04-17 08:01 | P.PN ---
Progress Note - Text The patient is an 85-year-old female who is a former smoker with COPD and presented 3 days ago with exacerbation and wheezing. She was also found to be in atrial fibrillation and turned into a rapid ventricular response. She was initially transferred here to the cardiology floor and placed on Cardizem drip and consultation with cardiology. Presently her beta blockers a been increased. Patient was also found to be positive for influenza A virus. She is on corticosteroids along with respiratory treatments. This morning she states she continues to feel better. Less short of breath. She has just finished eating her breakfast. She does seem somewhat fatigued. She is alert and oriented. Vital signs reveal temperature 98.2 with a pulse of 82 and irregular. Respirations are 16 and blood pressure 165/94 with a 96% saturation on room air. Patient does have some end expiratory wheezing diffusely. Heart tones are somewhat distant and irregular. Abdomen soft and nontender. No edema. No focal neurological deficits. Laboratory: White count is 4.6 with a hemoglobin 11.6 and a platelet count of 116. INR is still elevated at 4.9. Coumadin has been held for the last 2 days. Sodium is 1:30 with a potassium of 4.4. BUN is 21 with a creatinine 0.7 given her GFR greater than 60. Blood sugar is 112. Albumin 3. Impressions and plans: For her exacerbation of COPD we will continue her prednisone at 40 mg daily along with her antibiotics and Tamiflu. Patient is on increased dose of a beta ward for her atrial fibrillation. Continue to hold Coumadin and repeat INR in the morning. Physical therapy has been ordered. Hopefully with further improvement patient may be discharged to home over the next 24-48 hours. Discussed with patient and staff at bedside.
[2016-04-17] MEDS: DIGOXIN 125 MCG TAB PO SCH (08:06)
[2016-04-17] MEDS: FUROSEMIDE 20 MG TAB PO SCH (08:06)
[2016-04-17] MEDS: predniSONE 20 MG TAB PO SCH (08:06)
[2016-04-17] MEDS: METOPROLOL SUCCINATE (ER) 25 MG TAB.ER.24H PO SCH (08:06)
[2016-04-17] MEDS: ASCORBIC ACID 500 MG TAB PO SCH (08:07)
[2016-04-17] MEDS: AZITHROMYCIN 500 MG TAB PO SCH (08:07)
[2016-04-17] MEDS: OSELTAMIVIR 75 MG CAP PO SCH ×2 (08:07→20:50)
[2016-04-17] MEDS: TRIAMCINOLONE 0.1% CREAM 80 GM TUBE TOPICAL SCH ×2 (08:08→20:50)
[2016-04-17] MEDS: ALPRAZolam 0.25 MG TAB PO SCH ×2 (08:10→20:49)
[2016-04-17 11:29] LABS: Glucose,Whole Blood 225 mg/dL (75-99)
[2016-04-17] MEDS: LOSARTAN 50 MG TAB PO SCH (12:36)
[2016-04-17] MEDS: DOCUSATE 100 MG CAP PO SCH ×2 (12:37→20:49)
[2016-04-17] MEDS: MULTIVITAMINS, THERA 1 EACH TAB PO SCH (12:37)
--- NOTE | 2016-04-17 16:15 | P.PN ---
Subjective This is a pleasant 85-year-old female who follows regularly with Dr. Salazar in the office. She has a known history of chronic persistent atrial fibrillation, on Coumadin, history of smoking, COPD, diabetes, hyperlipidemia, hypertension, hypothyroidism, presented to the hospital with symptoms of persistent cough with productive sputum production, as well as the congestion, body aches and mild fever. She did rule in for influenza A. EKG on arrival here showed atrial fibrillation with a rapid ventricular response. Patient continues to be in atrial fibrillation, rate under adequate control today. INR 4.9 today. We will continue to hold Coumadin Objective - Vital Signs Vital signs: Vital Signs Temp 97.6 F 04/17/16 11:21 Pulse 80 04/17/16 11:21 Resp 16 04/17/16 11:21 BP 137/78 04/17/16 11:21 Pulse Ox 95 04/17/16 11:21 Intake & Output 04/16/16 04/17/16 04/17/16 18:59 06:59 18:59 Intake Total 760 0 410 Output Total 300 300 Balance 760 -300 110 Weight 86.1 kg 86.3 kg Intake: Intake, IV Titration 50 Amount cefTRIAXone 1,000 mg In 50 Sodium Chloride 0.9% 50 ml @ 100 mls/hr IVPB Q24HR [facility] Rx#:[id number] Oral 760 0 360 Output: Urine 300 300 Other: Voiding Method Toilet Toilet Toilet # Voids 2 1 1 - Exam PHYSICAL EXAMINATION: HEENT: Head is atraumatic, normocephalic. Pupils equal, round. Neck is supple. There is no elevated jugular venous pressure. HEART EXAMINATION: S1 and S2 irregularly irregular a systolic murmur is heard. CHEST EXAMINATION: Lungs reveal scattered coarse rhonchi and wheezes throughout. ABDOMEN: Soft, nontender. Bowel sounds are heard. No organomegaly noted. EXTREMITIES: 2+ peripheral pulses with trace evidence of peripheral edema and no calf tenderness noted. NEUROLOGIC patient is awake, alert and oriented -3. - Labs CBC & Chem 7: 04/17/16 05:45 04/17/16 05:45 Labs: Abnormal Lab Results - Last 24 Hours (Table) 04/16/16 04/16/16 04/16/16 Range/Units 16:27 16:36 20:38 RBC (3.80-5.40) m/uL Plt Count (150-450) k/uL Lymphocytes # (1.0-4.8) k/uL PT (9.0-12.0) sec Sodium (137-145) mmol/L Chloride (98-107) mmol/L BUN (7-17) mg/dL Glucose (74-99) mg/dL POC Glucose (mg/dL) 166 H 228 H 241 H (75-99) mg/dL Total Protein (6.3-8.2) g/dL Albumin (3.5-5.0) g/dL 04/17/16 04/17/16 04/17/16 Range/Units 05:45 05:45 05:45 RBC 3.74 L (3.80-5.40) m/uL Plt Count 116 L (150-450) k/uL Lymphocytes # 0.7 L (1.0-4.8) k/uL PT 49.0 H (9.0-12.0) sec Sodium 130 L (137-145) mmol/L Chloride 95 L (98-107) mmol/L BUN 21 H (7-17) mg/dL Glucose 118 H (74-99) mg/dL POC Glucose (mg/dL) (75-99) mg/dL Total Protein 5.3 L (6.3-8.2) g/dL Albumin 3.0 L (3.5-5.0) g/dL 04/17/16 04/17/16 Range/Units 05:58 11:26 RBC (3.80-5.40) m/uL Plt Count (150-450) k/uL Lymphocytes # (1.0-4.8) k/uL PT (9.0-12.0) sec Sodium (137-145) mmol/L Chloride (98-107) mmol/L BUN (7-17) mg/dL Glucose (74-99) mg/dL POC Glucose (mg/dL) 112 H 225 H (75-99) mg/dL Total Protein (6.3-8.2) g/dL Albumin (3.5-5.0) g/dL Assessment and Plan Plan: Assessment and plan #1 symptoms of productive cough of green sputum with associated fever, exacerbation of COPD with associated tracheobronchitis. Positive influenza A. #2 atrial fibrillation with rapid ventricular response, rate under excellent control today. #3 History of chronic persistent atrial fibrillation, on Coumadin for anticoagulation, INR today 4.9 likely secondary to being on IV antibiotics #4 hypertension #5 hyperlipidemia #6 diabetes #7 prior history of smoking #8 hyponatremia, sodium 129 #9 mild congestive cardiac failure, diastolic in nature. Acute on chronic Plan Echocardiogram with Doppler study revealed normal left ventricular systolic function. We will continue to hold Coumadin. Maintain INR in the range of 2- 2.5. We will follow this patient now with you on an as-needed basis only, please don't hesitate to call with any questions. DNP note has been reviewed, I agree with a documented findings and plan of care. Patient was seen and examined.
[2016-04-17 16:25] LABS: Glucose,Whole Blood 174 mg/dL (75-99)
[2016-04-17] MEDS: METOPROLOL SUCCINATE (ER) 50 MG TAB.ER.24H PO SCH (20:49)
[2016-04-17] MEDS: ATORVASTATIN 20 MG TAB PO SCH (20:49)
[2016-04-17] MEDS: MELATONIN 5 MG TABLET PO SCH (20:49)
[2016-04-17 21:04] LABS: Glucose,Whole Blood 182 mg/dL (75-99)
[2016-04-18] MEDS: IPRATROPIUM-ALBUTEROL 3 ML NEB INHALATION SCH ×6 (00:14→20:19)
[2016-04-18 06:03] LABS: Glucose,Whole Blood 64 mg/dL (75-99)
[2016-04-18 06:41] LABS: Glucose,Whole Blood 84 mg/dL (75-99)
[2016-04-18 07:03] LABS: Glucose,Whole Blood 104 mg/dL (75-99)
[2016-04-18] MEDS: INSULIN LISPRO (humaLOG) 300 UNIT/3 ML VIAL SQ SCH ×4 (07:03→22:34)
[2016-04-18] MEDS: LEVOTHYROXINE 75 MCG TAB PO SCH (07:11)
[2016-04-18] MEDS: PANTOPRAZOLE 40 MG TABLET PO SCH (07:11)
[2016-04-18] MEDS: ACARBOSE 25 MG TAB PO SCH (07:28)
--- NOTE | 2016-04-18 08:12 | P.PN ---
Progress Note - Text The patient is an 85-year-old female who is a former smoker with underlying COPD and presented 4 days previous with exacerbation and wheezing. Patient was also found to have atrial fibrillation with a rapid ventricular response. The patient initially received a Cardizem drip and an increase in her beta blockers have seemed to control her heart rate. She did check positive for influenza A virus. She is feeling somewhat better but still is somewhat weak and fatigued. Short of breath with minimal exertion. This morning she sitting at the side of the bed eating breakfast. Vital signs reveal temperature 97.6 with a pulse of 80 and respirations 18. Blood pressure is 142/82 and she is 94% saturated on room air. Head and neck exam unremarkable. Some end expiratory wheezes present at the bases. Heart tones are irregular but rate controlled. Abdomen nontender. trace edema. No new neurological deficits. Laboratory: Blood sugar was down in the 60s earlier this morning, back up to 104 now. Impressions and plans: Patient heart rate is better controlled. She is slowly improving from her exacerbation of COPD but still is somewhat debilitated, frail and weak. Patient does live alone at home for the most part even though son lives with her. We will continue present treatment with adjustments in her blood sugar medications. Continue with physical therapy. Hopefully with continuing physical improvement plans will be to discharge to home over the next 24-48 hours as discussed with patient and nursing staff this morning.
[2016-04-18] MEDS: LACTOBACILLUS ACIDOPH & BULGAR 1 EACH PACKET PO SCH (08:51)
[2016-04-18] MEDS: ASCORBIC ACID 500 MG TAB PO SCH (08:51)
[2016-04-18] MEDS: FUROSEMIDE 20 MG TAB PO SCH (08:51)
[2016-04-18] MEDS: OSELTAMIVIR 75 MG CAP PO SCH ×2 (08:51→19:45)
[2016-04-18] MEDS: TRIAMCINOLONE 0.1% CREAM 80 GM TUBE TOPICAL SCH ×2 (08:51→19:45)
[2016-04-18] MEDS: AZITHROMYCIN 500 MG TAB PO SCH (08:51)
[2016-04-18] MEDS: DOCUSATE 100 MG CAP PO SCH ×2 (08:51→19:44)
[2016-04-18] MEDS: DIGOXIN 125 MCG TAB PO SCH (08:52)
[2016-04-18] MEDS: predniSONE 20 MG TAB PO SCH (08:52)
[2016-04-18] MEDS: METOPROLOL SUCCINATE (ER) 25 MG TAB.ER.24H PO SCH (08:52)
[2016-04-18 08:54] LABS: INR 2.4 (<1.1); Prothrombin Time 23.1 sec (9.0-12.0)
[2016-04-18] MEDS: ALPRAZolam 0.25 MG TAB PO SCH ×2 (08:58→19:47)
[2016-04-18 11:23] LABS: Glucose,Whole Blood 105 mg/dL (75-99)
[2016-04-18] MEDS: LOSARTAN 50 MG TAB PO SCH (12:12)
[2016-04-18] MEDS: MULTIVITAMINS, THERA 1 EACH TAB PO SCH (12:12)
[2016-04-18] MEDS ORDERED: BISACODYL 10 MG SUPP RECTAL STA (12:23)
[2016-04-18] MEDS: WARFARIN 7.5 MG TAB PO SCH (12:27)
[2016-04-18 15:42] LABS: Glucose,Whole Blood 245 mg/dL (75-99)
[2016-04-18 16:52] LABS: Glucose,Whole Blood 264 mg/dL (75-99)
[2016-04-18] MEDS: glipiZIDE 5 MG TAB PO SCH (17:04)
[2016-04-18] MEDS ORDERED: WARFARIN 2.5 MG TAB PO ONE (18:00)
[2016-04-18] MEDS: ATORVASTATIN 20 MG TAB PO SCH (19:44)
[2016-04-18] MEDS: METOPROLOL SUCCINATE (ER) 50 MG TAB.ER.24H PO SCH (19:45)
[2016-04-18 21:09] LABS: Glucose,Whole Blood 219 mg/dL (75-99)
[2016-04-18] MEDS: MELATONIN 5 MG TABLET PO SCH (22:37)
[2016-04-19] MEDS: IPRATROPIUM-ALBUTEROL 3 ML NEB INHALATION SCH ×6 (01:31→21:45)
[2016-04-19 05:34] LABS: Glucose,Whole Blood 82 mg/dL (75-99)
[2016-04-19 05:34] LABS: Glucose,Whole Blood 62 mg/dL (75-99)
[2016-04-19] MEDS: INSULIN LISPRO (humaLOG) 300 UNIT/3 ML VIAL SQ SCH ×4 (06:01→21:37)
[2016-04-19 06:22] LABS: INR 1.8 (<1.1); Prothrombin Time 17.3 sec (9.0-12.0)
[2016-04-19] MEDS: LEVOTHYROXINE 75 MCG TAB PO SCH (06:53)
[2016-04-19] MEDS: glipiZIDE 5 MG TAB PO SCH ×2 (06:54→17:05)
[2016-04-19] MEDS: PANTOPRAZOLE 40 MG TABLET PO SCH (06:54)
--- NOTE | 2016-04-19 07:44 | P.PN ---
Progress Note - Text The patient is an 85-year-old female who is a former smoker with underlying COPD and presented 5 days ago with exacerbation and wheezing. She was also found to be in atrial fibrillation with rapid ventricular response which required a Cardizem drip to be initiated and consultation with cardiology. Patient also checked positive for in influenza A virus and has received Tamiflu. This morning she is somewhat better. She is still fatigued. Patient is less short of breath and denies any chest pain. Vital signs reveal temperature 90.7 with a pulse of 74 and respirations 16. Blood pressure 146/77 and she is 96% saturated on room air. Heart is somewhat irregular. Lungs are generally clear although diminished at bases. Few scattered rhonchi. No unusual edema. No neurological deficits. Labs: INR is 1.8 this morning and blood sugar was 62 and 82. Impressions and plans: We will continue with Coumadin 5 mg today. Continue with physical therapy. Discussed with patient and nursing staff. Needed patient can be moved to a regular nursing floor. Anticipating discharge tomorrow to home.
[2016-04-19] MEDS: ASCORBIC ACID 500 MG TAB PO SCH (09:02)
[2016-04-19] MEDS: AZITHROMYCIN 500 MG TAB PO SCH (09:02)
[2016-04-19] MEDS: ALPRAZolam 0.25 MG TAB PO SCH ×2 (09:02→21:36)
[2016-04-19] MEDS: FUROSEMIDE 20 MG TAB PO SCH (09:03)
[2016-04-19] MEDS: LACTOBACILLUS ACIDOPH & BULGAR 1 EACH PACKET PO SCH (09:03)
[2016-04-19] MEDS: DIGOXIN 125 MCG TAB PO SCH (09:03)
[2016-04-19] MEDS: DOCUSATE 100 MG CAP PO SCH ×2 (09:03→21:36)
[2016-04-19] MEDS: LOSARTAN 50 MG TAB PO SCH (09:04)
[2016-04-19] MEDS: METOPROLOL SUCCINATE (ER) 25 MG TAB.ER.24H PO SCH (09:04)
[2016-04-19] MEDS: OSELTAMIVIR 75 MG CAP PO SCH ×2 (09:04→21:36)
[2016-04-19] MEDS: TRIAMCINOLONE 0.1% CREAM 80 GM TUBE TOPICAL SCH ×2 (09:05→21:37)
[2016-04-19] MEDS: predniSONE 10 MG TAB PO SCH (09:21)
[2016-04-19] MEDS: glipiZIDE 10 MG TAB PO SCH (09:25)
[2016-04-19 09:30] VITALS: RESP 18
[2016-04-19 11:58] LABS: Glucose,Whole Blood 62 mg/dL (75-99)
[2016-04-19] MEDS: MULTIVITAMINS, THERA 1 EACH TAB PO SCH (11:59)
[2016-04-19] MEDS ORDERED: ALPRAZolam 0.5 MG TAB PO STA (16:12)
[2016-04-19 16:35] LABS: Glucose,Whole Blood 300 mg/dL (75-99)
[2016-04-19 21:05] LABS: Glucose,Whole Blood 258 mg/dL (75-99)
[2016-04-19] MEDS: METOPROLOL SUCCINATE (ER) 50 MG TAB.ER.24H PO SCH (21:36)
[2016-04-19] MEDS: ATORVASTATIN 20 MG TAB PO SCH (21:36)
[2016-04-19] MEDS: MELATONIN 5 MG TABLET PO SCH (21:36)
[2016-04-20] MEDS: IPRATROPIUM-ALBUTEROL 3 ML NEB INHALATION SCH ×3 (03:24→10:57)
[2016-04-20] MEDS: PANTOPRAZOLE 40 MG TABLET PO SCH (06:27)
[2016-04-20] MEDS: INSULIN LISPRO (humaLOG) 300 UNIT/3 ML VIAL SQ SCH (06:27)
[2016-04-20] MEDS: LEVOTHYROXINE 75 MCG TAB PO SCH (06:27)
[2016-04-20 06:32] LABS: Glucose,Whole Blood 55 mg/dL (75-99)
[2016-04-20 06:50] LABS: Glucose,Whole Blood 85 mg/dL (75-99)
[2016-04-20 07:26] LABS: Anion Gap 9 mmol/L; Blood Urea Nitrogen 26 mg/dL (7-17); Calcium 8.9 mg/dL (8.4-10.2); Carbon Dioxide 29 mmol/L (22-30); Chloride 95 mmol/L (98-107); Non-African American GFR(MDRD) >60 (>60 ml/min/1.73 sqM); Potassium 4.6 mmol/L (3.5-5.1); Sodium 133 mmol/L (137-145)
[2016-04-20 07:30] LABS: INR 1.5 (<1.1); Prothrombin Time 14.6 sec (9.0-12.0)
--- NOTE | 2016-04-20 07:51 | P.PN ---
Progress Note - Text The patient is an 85-year-old female who has underlying COPD and former tobacco use presented 6 days ago with exacerbation of COPD with wheezing. She also has atrial fibrillation and was found to be in a rapid ventricular response and also tested positive for influenza A virus. Patient has been on antibiotics, Tamiflu, prednisone taper along with her respiratory treatments. She has been seen by physical therapy. Her rate has been controlled on medications. This morning she states she does feel better. No chest pain. No unusual shortness of breath at rest. Last vital signs reveal temperature of 97.5 with a pulse of 92 and respirations 18. Blood pressure 147/66. She is 97% saturated on room air. Head and neck exam unremarkable. There is some mild end expiratory wheeze but otherwise clear. Heart tones irregular but rate controlled. Abdomen nontender. Extremities no edema. No focal neurological deficits. INR this morning is 1.5. Blood sugars in the evenings are up in the 250 range but do come down in the morning. In the hospital here she is receiving extra insulin and we will be cutting her prednisone down. Impressions and plans: Plan at this point is for patient to be discharged to home with home nursing and follow-up. She is to resume her home medications that are on her list on presentation to the hospital. We will send in tapering dosages of prednisone over the next 10 days she will be on 20 mg for 5 days then down to 10 mg for another 5 days then stop. She is also to finish off a course of Ceftin 500 mg for 5 more days to be sent into her local [facility] pharmacy. Follow-up in the office over the next 7-10 days pending home visiting nurse evaluations. Would like visiting nurses to draw PT/INR and basic metabolic panel next week and send to office.
[2016-04-20 07:55] LABS: Glucose 46 mg/dL (74-99)
[2016-04-20] MEDS: glipiZIDE 5 MG TAB PO SCH (09:45)
[2016-04-20] MEDS: DOCUSATE 100 MG CAP PO SCH (09:46)
[2016-04-20] MEDS: predniSONE 10 MG TAB PO SCH (09:46)
[2016-04-20] MEDS: LACTOBACILLUS ACIDOPH & BULGAR 1 EACH PACKET PO SCH (09:46)
[2016-04-20] MEDS: TRIAMCINOLONE 0.1% CREAM 80 GM TUBE TOPICAL SCH (09:47)
[2016-04-20] MEDS: MULTIVITAMINS, THERA 1 EACH TAB PO SCH (09:47)
[2016-04-20] MEDS: FUROSEMIDE 20 MG TAB PO SCH (09:57)
[2016-04-20] MEDS: ASCORBIC ACID 500 MG TAB PO SCH (09:57)
[2016-04-20] MEDS: AZITHROMYCIN 500 MG TAB PO SCH (09:57)
[2016-04-20] MEDS: DIGOXIN 125 MCG TAB PO SCH (09:57)
[2016-04-20] MEDS: LOSARTAN 50 MG TAB PO SCH (09:58)
[2016-04-20] MEDS: METOPROLOL SUCCINATE (ER) 25 MG TAB.ER.24H PO SCH (09:58)
[2016-04-20] MEDS: ALPRAZolam 0.25 MG TAB PO SCH (10:02)
[2016-04-20 11:36] VITALS: BP 154/82; PULSE 84; TEMP 98.1
[2016-04-20 12:06] LABS: Glucose,Whole Blood 182 mg/dL (75-99)
--- NOTE | 2016-05-06 12:31 | DS ---
DATE OF ADMISSION: 04/14/2016 DATE OF DISCHARGE: 04/20/2016 Mrs. Ireland is an 85-year-old female who was admitted on the april, presenting to the emergency room with cough and shortness of breath. The patient has underlying chronic obstructive pulmonary disease. Found to have wheezing, also associated with acute bronchitis, an exacerbation of chronic obstructive pulmonary disease and acute on chronic congestive heart failure with atrial fibrillation and rapid ventricular response and hyponatremia. The patient was admitted and monitored. Consult obtained with Cardiology. Please refer to their notes. Initial laboratory values revealed a white count 3.5 with hemoglobin 12.5 and a platelet count of 130. Sodium slightly low at 129, potassium normal at 4.5, BUN of 14 with a creatinine of 0.65, giving her GFR greater than 60. She did have a mildly elevated AST of 85, but otherwise normal liver function tests. Albumin was 4.1. Troponin was 0.018. BNP was elevated at 1520. Her blood sugar on presentation was 143. Chest x-ray did show some cardiomegaly and congestive heart failure with prominent vascular markings. EKG showed atrial fibrillation with a rapid ventricular response. Subsequent echocardiogram revealed an ejection fraction of 55% to 60%. Left atrial diameter was moderately dilated at 34 to 39 m sq. There was some moderately thickened aortic valve with a gradient of 17. The patient was treated with her diuretics along with antibiotics. She was also placed on Tamiflu as she did have positive influenza B associated with this. She was also treated with corticosteroids, with gradual improvement in her respiratory status. Coumadin also was adjusted along with dosage changes on her insulin to help control her sugars while on prednisone. Overall there was gradual improvement in her overall clinical state and inability to ambulate and her endurance. At this point, plans are to discharge home with tapering dosages of prednisone 20 mg per 5 days and another 10 for another 5 days and also a course of another 5 more days of Ceftin 500 mg twice a day. These were sent to her local [facility] pharmacy. Her other medications included: 1. Alprazolam to be continued 0.25 twice a day as needed for anxiety. 2. Acarbose 50 mg before breakfast and supper. 3. She takes vitamin C 500 mg daily. 4. Atorvastatin 20 mg at bedtime for cholesterol. 5. She does take biotin 5 mg daily. 6. Digoxin 0.125 daily for her atrial fibrillation. 7. Nexium 40 mg daily for gastroesophageal reflux. 8. Lasix 20 mg daily for her congestive heart failure. 9. She takes glucosamine daily for her arthritis. 10. She has hydrocortisone cream 2.5% as needed. 11. Probiotic daily. 12. Levothyroxine 75 mcg daily. 13. Losartan 100 mg daily for her blood pressure. 14. She takes lutein 10 mg daily. 15. Melatonin 2.5 at bedtime if needed for sleep. 16. Metoprolol 50 mg with supper. 17. Olivia-3 fatty acid 1000 mg daily. 18. Coumadin dose is 5 mg Saturday through and 7.5 on other days Mondays, Saturday, Saturday and Saturday. 19. Glipizide 10 mg before breakfast and supper. FINAL DISCHARGE DIAGNOSES: 1. Asthmatic bronchitis secondary to influenza B with bacterial infection with exacerbation of chronic obstructive pulmonary disease associated with #2. 2. Atrial fibrillation and rapid ventricular response. 3. Persistent atrial fibrillation, on Coumadin. 4. Hyponatremia. 5. Acute on chronic diastolic congestive heart failure. 6. Hypertension. 7. Hyperlipidemia. 8. Underlying type 2 diabetes. 9. History of chronic obstructive pulmonary disease with previous smoking history. 10. Hypothyroidism, on medication. The patient will have follow-up basic metabolic panel and INRs performed. The patient will follow up with myself and cardiology over the next 7 days. Call office for any concerns or problems. DOE
== END 2016-04-20 13:15 | disposition home health service (06) | DRG 193 ==
LOC: EC 09:52 → 5MS5E 11:37 → 6SEL 04-15 21:32
PROVIDERS: ADMIT Internal Medicine; ATTEND Internal Medicine
DX: J10.1 Influenza due to other identified influenza virus with other respiratory manifestations (principal); I50.33 Acute on chronic diastolic (congestive) heart failure; J44.0 Chronic obstructive pulmonary disease with (acute) lower respiratory infection; I48.1 Persistent atrial fibrillation; J44.1 Chronic obstructive pulmonary disease with (acute) exacerbation; E87.1 Hypo-osmolality and hyponatremia; I11.0 Hypertensive heart disease with heart failure; J20.9 Acute bronchitis, unspecified; J45.909 Unspecified asthma, uncomplicated; E78.00 Pure hypercholesterolemia, unspecified; E03.9 Hypothyroidism, unspecified; I25.10 Atherosclerotic heart disease of native coronary artery without angina pectoris; E11.9 Type 2 diabetes mellitus without complications; K21.9 Gastro-esophageal reflux disease without esophagitis; M19.91 Primary osteoarthritis, unspecified site; E78.5 Hyperlipidemia, unspecified; Z87.891 Personal history of nicotine dependence; Z86.59 Personal history of other mental and behavioral disorders; Z79.01 Long term (current) use of anticoagulants; Z79.84 Long term (current) use of oral hypoglycemic drugs; Z79.899 Other long term (current) drug therapy; Z82.5 Family history of asthma and other chronic lower respiratory diseases
CPT/HCPCS: 36415; 71020; 80048; 80053; 80162; 82550; 82553; 83605; 83735; 83880; 84443; 84484; 85025; 85610; 85730; 87040; 87502; 93005; 93306; 94640; 96365; 96367; 96375; 99284

== ENCOUNTER → 2016-06-01 | Outpatient (CLI) | payer MEDICARE, OTHER ==
[2016-06-01 10:38] LABS: CH 29.7; CHCM 30.4; HCT 39.2 % (34.0-46.0); HDW 2.41; HGB 12.4 gm/dL (11.4-16.0); Hypochromasia Moderate; MCH 31.1 pg (25.0-35.0); MCHC 31.7 g/dL (31.0-37.0); Mean Platelet Volume 7.4; RBC 3.99 m/uL (3.80-5.40); RDW 13.8 % (11.5-15.5); WBC 4.4 k/uL (3.8-10.6)
[2016-06-01 10:40] LABS: MCV 98.3 fL (80.0-100.0)
[2016-06-01 11:12] LABS: ALT 40 U/L (9-52); AST 45 U/L (14-36); Alkaline Phosphatase 101 U/L (38-126); Anion Gap 10 mmol/L; Blood Urea Nitrogen 18 mg/dL (7-17); Calcium 9.4 mg/dL (8.4-10.2); Carbon Dioxide 25 mmol/L (22-30); Chloride 101 mmol/L (98-107); Cholesterol 140 mg/dL (<200); Glucose 121 mg/dL (74-99); HDL Cholesterol 56 mg/dL (40-60); Non-African American GFR(MDRD) >60 (>60 ml/min/1.73 sqM); Potassium 4.2 mmol/L (3.5-5.1); Sodium 136 mmol/L (137-145); Total Bilirubin 1.3 mg/dL (0.2-1.3); Total Protein 6.7 g/dL (6.3-8.2); Triglycerides 104 mg/dL (<150)
[2016-06-01 13:13] LABS: Hemoglobin A1C 6.8 % (4.2-6.1)
== END | disposition home or self-care (01) ==
LOC: LABWHC1 10:04
PROVIDERS: ATTEND Internal Medicine
DX: E87.8 Other disorders of electrolyte and fluid balance, not elsewhere classified (principal); E78.4 Other hyperlipidemia; R53.83 Other fatigue; E11.69 Type 2 diabetes mellitus with other specified complication
CPT/HCPCS: 36415; 80053; 80061; 83036; 85027

== ENCOUNTER 2016-08-28 11:34 | Observation (INO) | payer MEDICARE, OTHER ==
[2016-08-28] MEDS ORDERED: SODIUM CHLORIDE 0.9% 1,000 ML IV STA (11:49)
[2016-08-28] MEDS ORDERED: NITROGLYCERIN SL TABS 0.4 MG TAB SUBLINGUAL STA ×3 (11:49)
[2016-08-28] MEDS ORDERED: ASPIRIN 81 MG PO STA (11:49)
--- NOTE | 2016-08-28 11:58 | ED ---
General Adult HPI - General Chief complaint: Chest Pain Stated complaint: Chest Pain Time Seen by Provider: 08/28/16 11:46 Source: patient, family, RN notes reviewed Mode of arrival: wheelchair Limitations: no limitations - History of Present Illness Initial comments: Patient is a pleasant 85-year-old female presenting to the emergency department complaining of chest discomfort. Patient is a poor historian. Majority of history comes from the family. Patient did have some chest discomfort yesterday. Discomfort was worse this morning. Patient states discomfort is somewhat increased with deep breaths. Patient denies significant cough. No fever. Patient does not feel short of breath. Patient is unclear if she has a history of similar symptoms previously. Patient does have a known history of irregular heartbeat. - Related Data Home Medications Medication Instructions Recorded Confirmed Acarbose 50 mg PO BID-W/MEALS 04/14/16 08/28/16 Ascorbic Acid [Vitamin C] 500 mg PO DAILY 04/14/16 08/28/16 Atorvastatin [Lipitor] 20 mg PO HS 04/14/16 08/28/16 Biotin 5 mg PO DAILY 04/14/16 08/28/16 Digoxin [Lanoxin] 125 mcg PO DAILY 04/14/16 08/28/16 Esomeprazole Magnesium [NexIUM] 40 mg PO DAILY 04/14/16 08/28/16 Furosemide [Lasix] 20 mg PO DAILY 04/14/16 08/28/16 Glucosam/[place]-Msm1/C/Issac/Bosw 1 tab PO DAILY 04/14/16 08/28/16 [Glucosamine-Chondroitin Tablet] Hydrocortisone Cream 1 applic TOPICAL BID 04/14/16 08/28/16 [Hydrocortisone 2.5% Cream] L.acidoph,Paracasei, B.lactis 1 cap PO DAILY 04/14/16 08/28/16 [Probiotic] Levothyroxine Sodium [Synthroid] 75 mcg PO DAILY 04/14/16 08/28/16 Losartan Potassium 100 mg PO DAILY 04/14/16 08/28/16 Lutein 10 mg PO DAILY 04/14/16 08/28/16 Melatonin 2.5mg 2.5 mg PO HS 04/14/16 08/28/16 Metoprolol Succinate (ER) [Toprol 50 mg PO W/SUPPER 04/14/16 08/28/16 Xl] Multivitamins, Thera [Multivitamin] 1 tab PO DAILY 04/14/16 08/28/16 [place]-3 Fatty Acids/Fish Oil [Fish 1 cap PO DAILY 04/14/16 08/28/16 Oil 1,000 mg Softgel] Warfarin [Coumadin] 5 mg PO DAILY 04/14/16 08/28/16 Warfarin [Coumadin] 7.5 mg PO MOWEFR 04/14/16 08/28/16 glipiZIDE XL [Glucotrol Xl] 10 mg PO AC-BID 04/14/16 08/28/16 Allergies Allergy/AdvReac Type Severity Reaction Status Date / Time milk Allergy Unknown Verified 08/28/16 12:55 sertraline [From Zoloft] Allergy Rash/Hives Verified 08/28/16 12:55 tomato Allergy Unknown Verified 08/28/16 12:55 Review of Systems ROS Statement: Those systems with pertinent positive or pertinent negative responses have been documented in the HPI. ROS Other: All systems not noted in ROS Statement are negative. Constitutional: Denies: fever Eyes: Denies: eye pain ENT: Denies: ear pain Respiratory: Denies: cough Cardiovascular: Reports: chest pain Endocrine: Denies: fatigue Gastrointestinal: Denies: abdominal pain Genitourinary: Denies: dysuria Musculoskeletal: Denies: back pain Skin: Denies: rash Past Medical History Past Medical History: Atrial Fibrillation, Heart Failure, Diabetes Mellitus, Hyperlipidemia, Hypertension History of Any Multi-Drug Resistant Organisms: None Reported Past Surgical History: Appendectomy, Cholecystectomy, Hysterectomy Past Anesthesia/Blood Transfusion Reactions: No Reported Reaction Past Psychological History: Depression Smoking Status: Former smoker Past Alcohol Use History: None Reported Past Drug Use History: None Reported - Past Family History Father Family Medical History: Asthma Mother Family Medical History: Diabetes Mellitus Additional Family Medical History / Comment(s): mother at 62 General Exam Limitations: no limitations General appearance: alert, in no apparent distress Head exam: Present: atraumatic Eye exam: Present: normal appearance, PERRL ENT exam: Absent: normal oropharynx Neck exam: Present: normal inspection Respiratory exam: Present: normal lung sounds bilaterally. Absent: chest wall tenderness Cardiovascular Exam: Present: irregular rhythm Expanded Peripheral pulses: 2+: Radial (R), Radial (L), Dorsalis Pedis (R), Dorsalis Pedis (L) GI/Abdominal exam: Present: soft. Absent: tenderness Extremities exam: Present: normal inspection. Absent: pedal edema, calf tenderness Neurological exam: Present: alert Psychiatric exam: Present: normal affect, normal mood Skin exam: Present: normal color Course Vital Signs 08/28/16 08/28/16 08/28/16 11:36 12:22 12:25 Temperature 99.9 F H 97.0 F L Pulse Rate 88 90 87 Respiratory 16 18 16 Rate Blood Pressure 233/99 215/95 146/83 O2 Sat by Pulse 97 99 98 Oximetry 08/28/16 08/28/16 08/28/16 12:30 12:35 13:03 Temperature Pulse Rate 92 81 91 Respiratory 16 16 16 Rate Blood Pressure 135/69 127/75 145/79 O2 Sat by Pulse 97 96 98 Oximetry 08/28/16 13:50 Temperature Pulse Rate 98 Respiratory 16 Rate Blood Pressure 136/76 O2 Sat by Pulse 95 Oximetry EKG Findings - EKG Comments: EKG Findings:: A. fib with RVR, rate 104. QRS 98. QT 326. QTc 428. Kopperl indeterminate. Incomplete right bundle-branch block. Nonspecific ST-T. Medical Decision Making - Medical Decision Making Patient reevaluated and resting comfortably in bed. Patient did have improvement with nitroglycerin. Patient and family updated on results. Case discussed in detail with Dr. Davis, who will admit his patient. Family updated. Patient updated. - Lab Data Result diagrams: 08/28/16 13:18 08/28/16 13:18 Lab Results 08/28/16 08/28/16 08/28/16 Range/Units 13:18 13:18 13:18 WBC 6.8 (3.8-10.6) k/uL RBC 3.94 (3.80-5.40) m/uL Hgb 12.1 (11.4-16.0) gm/dL Hct 37.5 (34.0-46.0) % MCV 95.2 (80.0-100.0) fL MCH 30.6 (25.0-35.0) pg MCHC 32.1 (31.0-37.0) g/dL RDW 13.8 (11.5-15.5) % Plt Count 199 (150-450) k/uL Neutrophils % 63 % Lymphocytes % 27 % Monocytes % 6 % Eosinophils % 1 % Basophils % 1 % Neutrophils # 4.3 (1.3-7.7) k/uL Lymphocytes # 1.8 (1.0-4.8) k/uL Monocytes # 0.4 (0-1.0) k/uL Eosinophils # 0.1 (0-0.7) k/uL Basophils # 0.0 (0-0.2) k/uL PT 34.6 H (9.0-12.0) sec INR 3.6 H (<1.2) APTT 41.6 H (22.0-30.0) sec Sodium 135 L (137-145) mmol/L Potassium 4.7 (3.5-5.1) mmol/L Chloride 98 (98-107) mmol/L Carbon Dioxide 30 (22-30) mmol/L Anion Gap 7 mmol/L BUN 11 (7-17) mg/dL Creatinine 0.76 (0.52-1.04) mg/dL Est GFR (MDRD) Af Amer >60 (>60 ml/min/1.73 sqM) Est GFR (MDRD) Non-Af >60 (>60 ml/min/1.73 sqM) Glucose 115 H (74-99) mg/dL Calcium 8.9 (8.4-10.2) mg/dL Magnesium 1.7 (1.6-2.3) mg/dL Total Bilirubin 1.2 (0.2-1.3) mg/dL AST 35 (14-36) U/L ALT 43 (9-52) U/L Alkaline Phosphatase 121 (38-126) U/L Total Creatine Kinase (30-135) U/L CK-MB (CK-2) (0.0-2.4) ng/mL CK-MB (CK-2) Rel Index Troponin I (0.000-0.034) ng/mL Total Protein 5.9 L (6.3-8.2) g/dL Albumin 3.6 (3.5-5.0) g/dL 08/28/16 Range/Units 13:18 WBC (3.8-10.6) k/uL RBC (3.80-5.40) m/uL Hgb (11.4-16.0) gm/dL Hct (34.0-46.0) % MCV (80.0-100.0) fL MCH (25.0-35.0) pg MCHC (31.0-37.0) g/dL RDW (11.5-15.5) % Plt Count (150-450) k/uL Neutrophils % % Lymphocytes % % Monocytes % % Eosinophils % % Basophils % % Neutrophils # (1.3-7.7) k/uL Lymphocytes # (1.0-4.8) k/uL Monocytes # (0-1.0) k/uL Eosinophils # (0-0.7) k/uL Basophils # (0-0.2) k/uL PT (9.0-12.0) sec INR (<1.2) APTT (22.0-30.0) sec Sodium (137-145) mmol/L Potassium (3.5-5.1) mmol/L Chloride (98-107) mmol/L Carbon Dioxide (22-30) mmol/L Anion Gap mmol/L BUN (7-17) mg/dL Creatinine (0.52-1.04) mg/dL Est GFR (MDRD) Af Amer (>60 ml/min/1.73 sqM) Est GFR (MDRD) Non-Af (>60 ml/min/1.73 sqM) Glucose (74-99) mg/dL Calcium (8.4-10.2) mg/dL Magnesium (1.6-2.3) mg/dL Total Bilirubin (0.2-1.3) mg/dL AST (14-36) U/L ALT (9-52) U/L Alkaline Phosphatase (38-126) U/L Total Creatine Kinase 37 (30-135) U/L CK-MB (CK-2) 0.4 (0.0-2.4) ng/mL CK-MB (CK-2) Rel Index 1.1 Troponin I <0.012 (0.000-0.034) ng/mL Total Protein (6.3-8.2) g/dL Albumin (3.5-5.0) g/dL - Radiology Data Radiology results: image reviewed (Chest x-ray shows no acute process) Disposition Clinical Impression: Chest pain Disposition: ADMITTED IP TO THIS [facility] Referrals: Reza Valenzuela MD [Primary Care Provider] - 1-2 days Decision Time: 15:15
[2016-08-28 13:39] LABS: Basophils % (A) 1 %; CH 30.9; CHCM 32.6; Eosinophils # (A) 0.1 k/uL (0-0.7); Eosinophils % (A) 1 %; HCT 37.5 % (34.0-46.0); HGB 12.1 gm/dL (11.4-16.0); Luc # (Auto) 0.15; Luc % (Auto) 2; Lymphocytes # (A) 1.8 k/uL (1.0-4.8); Lymphocytes % (A) 27 %; MCH 30.6 pg (25.0-35.0); MCHC 32.1 g/dL (31.0-37.0); MCV 95.2 fL (80.0-100.0); Mean Platelet Volume 7.7; Monocytes # (A) 0.4 k/uL (0-1.0); Monocytes % (A) 6 %; Neutrophils # (A) 4.3 k/uL (1.3-7.7); Neutrophils % (A) 63 %; RBC 3.94 m/uL (3.80-5.40); RDW 13.8 % (11.5-15.5); WBC 6.8 k/uL (3.8-10.6); WBC (Perox) 6.75
[2016-08-28 13:50] LABS: INR 3.6 (<1.2); Prothrombin Time 34.6 sec (9.0-12.0)
[2016-08-28 13:51] LABS: AST 35 U/L (14-36); Alkaline Phosphatase 121 U/L (38-126); Anion Gap 7 mmol/L; Blood Urea Nitrogen 11 mg/dL (7-17); Calcium 8.9 mg/dL (8.4-10.2); Carbon Dioxide 30 mmol/L (22-30); Chloride 98 mmol/L (98-107); Glucose 115 mg/dL (74-99); Magnesium 1.7 mg/dL (1.6-2.3); Non-African American GFR(MDRD) >60 (>60 ml/min/1.73 sqM); Partial Thromboplastin Time 41.6 sec (22.0-30.0); Potassium 4.7 mmol/L (3.5-5.1); Sodium 135 mmol/L (137-145); Total Bilirubin 1.2 mg/dL (0.2-1.3); Total Protein 5.9 g/dL (6.3-8.2)
[2016-08-28 13:56] LABS: ALT 43 U/L (9-52)
--- NOTE | 2016-08-28 13:59 | XR ---
EXAMINATION TYPE: XR chest 2V DATE OF EXAM: 08/28/2016 COMPARISON: 04/14/2016 HISTORY: Shortness of breath TECHNIQUE: Frontal and lateral views of the chest are obtained. FINDINGS: Scattered senescent parenchymal changes noted. Hyperinflation compatible with COPD. No evidence for infiltrate. No evidence for atelectasis. Heart size is stable. Mediastinal structures are stable and grossly unremarkable. No evidence for hilar prominence. Degenerative changes dorsal spine. IMPRESSION: 1. No evidence for acute pulmonary disease.
[2016-08-28 14:06] LABS: Creatine Kinase 37 U/L (30-135)
[2016-08-28 14:17] LABS: Creatine Kinase MB 0.4 ng/mL (0.0-2.4); Troponin I <0.012 ng/mL (0.000-0.034)
[2016-08-28] MEDS ORDERED: NITROGLYCERIN SL TABS 0.4 MG TAB SUBLINGUAL PRN (15:16)
[2016-08-28] MEDS: NITROGLYCERIN OINT 1 INCH/GM PACKET TOPICAL SCH ×2 (15:49→22:51)
[2016-08-28] MEDS ORDERED: METOPROLOL TARTRATE 50 MG TAB PO STA (16:21)
[2016-08-28] MEDS ORDERED: LOSARTAN 50 MG TAB PO STA (16:22)
[2016-08-28 17:33] LABS: Appearance,Urine Clear (Clear); Bacteria,Urine Rare /hpf; Bilirubin,Urine Negative (Negative); Glucose,Urine (UA) Negative (Negative); Ketones,Urine Negative (Negative); Leukocyte Esterase,Urine Trace (Negative); Nitrite,Urine Negative (Negative); PH, Urine 6.5 (5.0-8.0); Particle Count 387; Protein,Urine 1+ (Negative); RBC,Urine <1 /hpf (0-5); Specific Gravity,Urine 1.009 (1.001-1.035); Squamous Epithelial Cell,Urine <1 /hpf (0-4); UA Billing (MACRO vs. MICRO) MICRO; WBC,Urine 2 /hpf (0-5)
--- NOTE | 2016-08-28 17:54 | P.HPIM ---
History of Present Illness Chief complaint: Chest pain History of present illness: The patient is a 85-year-old female who has had some recurrent left chest discomfort that occurred somewhat yesterday and also this morning upon wakening. The pain does seem to increase with respirations. She denies any unusual fever or chills or cough. Denies any recent trauma or falls. She does have underlying atrial fibrillation and is followed by [facility]. Some history of chronic diastolic congestive heart failure also. Past medical history: Patient was hospitalized here in April with acute bronchitis secondary to influenza B and exacerbation of her COPD at that time. As mentioned she does of chronic atrial fibrillation and Coumadin Chronic diastolic congestive heart failure. Echocardiogram done in April of this year showed an ejection fraction of 55-60%. Hypertension hypertensive heart disease Hyperlipidemia Type 2 diabetes COPD and previous smoking history Hypothyroidism Medical ALLERGIES of rash with Zoloft. Apparently there are food ALLERGIES with milk and tomatoes. Medications: Please refer to list of her home medications. Review of systems: No unusual visual disturbances. No headaches. No nausea or vomiting. No marked change in coughing. No PND or orthopnea noted. Some shortness of breath with exertion noted. No new urinary or bowel symptomatology. No blood per rectum. No unusual edema. No focal weakness. Family history is positive for a sister with liver cancer and brother with bone cancer. There is also history of diabetes and coronary artery disease. Social history: The patient has been for many years. She does still live with her son. She quit smoking many years ago. There is no history of any excessive alcohol intake. Physical examination: Patient presently sitting up at the side of bed. Blood pressure 165/77 and percent saturation of 93%. Temperature is 98.4 with a pulse of 82 and respirations 17. Head and neck exam unremarkable. Extraocular movements intact. Neck is supple without adenopathy, thyromegaly or bruits detected. Breast and pelvic exam deferred. There is some chest wall elicited tenderness in the left lower rib cage. Lungs were clear to auscultation. Heart irregularly irregular without definite murmurs or rubs appreciated. Abdomen is obese but nontender. No organomegaly. Extremities reveal no edema. No focal neurological deficits noted. Cranial nerves intact. She is alert and oriented. Laboratory results: CBC unremarkable with a white count of 6.8 and hemoglobin 12.1 and a platelet count of 199 INR is elevated at 3.6 with a PTT of 41.6. Sodium is 135 with potassium 4.7. BUN of 11 with creatinine 0.76 given her GFR greater than 60. Blood sugar 1:15. Liver function tests were good with a total protein of 5.9 and albumin 3.6. CK normal at 37 with a troponin of less than 0.012. Also show trace leukocyte esterase with only 2 white cells present. EKG demonstrates atrial fibrillation with an incomplete right bundle branch block. And nonspecific ST-T wave changes. Chest x-ray showed no evidence of acute to disease process. Impressions: Patient presented with left chest pain. Some pleuritic component. Enzymes and EKG so far unremarkable. Question possibility of underlying costochondritis. Also pleurisy. Cannot completely rule out ischemic heart disease at this time. The patient with underlying heart disease with history of hypertension, chronic atrial fibrillation and diastolic chronic congestive heart failure. Patient has comorbidities as stated above in past medical history. Plans: At this point with Coumadin being above therapeutic level we will hold. Patient to have follow-up enzymes. We will continue her home medications for her hypertension, atrial fibrillation and underlying diabetes. Cardiology consultation for further recommendations on any further workup if needed. Discussed with patient and family and staff at bedside. Past Medical History Past Medical History: Atrial Fibrillation, Heart Failure, Diabetes Mellitus, Hyperlipidemia, Hypertension History of Any Multi-Drug Resistant Organisms: None Reported Past Surgical History: Appendectomy, Cholecystectomy, Hysterectomy Past Anesthesia/Blood Transfusion Reactions: No Reported Reaction Past Psychological History: Depression Smoking Status: Former smoker Past Alcohol Use History: None Reported Past Drug Use History: None Reported - Past Family History Father Family Medical History: Asthma Mother Family Medical History: Diabetes Mellitus Additional Family Medical History / Comment(s): mother at 62 Medications and Allergies Home Medications Medication Instructions Recorded Confirmed Type Acarbose 50 mg PO BID-W/MEALS 04/14/16 08/28/16 History Ascorbic Acid [Vitamin C] 500 mg PO DAILY 04/14/16 08/28/16 History Atorvastatin [Lipitor] 20 mg PO HS 04/14/16 08/28/16 History Biotin 5 mg PO DAILY 04/14/16 08/28/16 History Digoxin [Lanoxin] 125 mcg PO DAILY 04/14/16 08/28/16 History Esomeprazole Magnesium [NexIUM] 40 mg PO DAILY 04/14/16 08/28/16 History Furosemide [Lasix] 20 mg PO DAILY 04/14/16 08/28/16 History Glucosam/[place]-Msm1/C/Issac/Bosw 1 tab PO DAILY 04/14/16 08/28/16 History [Glucosamine-Chondroitin Tablet] Hydrocortisone Cream 1 applic TOPICAL BID 04/14/16 08/28/16 History [Hydrocortisone 2.5% Cream] L.acidoph,Paracasei, B.lactis 1 cap PO DAILY 04/14/16 08/28/16 History [Probiotic] Levothyroxine Sodium [Synthroid] 75 mcg PO DAILY 04/14/16 08/28/16 History Losartan Potassium 100 mg PO DAILY 04/14/16 08/28/16 History Lutein 10 mg PO DAILY 04/14/16 08/28/16 History Melatonin 2.5mg 2.5 mg PO HS 04/14/16 08/28/16 History Metoprolol Succinate (ER) [Toprol 50 mg PO W/SUPPER 04/14/16 08/28/16 History Xl] Multivitamins, Thera [Multivitamin] 1 tab PO DAILY 04/14/16 08/28/16 History [place]-3 Fatty Acids/Fish Oil [Fish 1 cap PO DAILY 04/14/16 08/28/16 History Oil 1,000 mg Softgel] Warfarin [Coumadin] 5 mg PO DAILY 04/14/16 08/28/16 History Warfarin [Coumadin] 7.5 mg PO MOWEFR 04/14/16 08/28/16 History glipiZIDE XL [Glucotrol Xl] 10 mg PO AC-BID 04/14/16 08/28/16 History Allergies Allergy/AdvReac Type Severity Reaction Status Date / Time milk Allergy Unknown Verified 08/28/16 12:55 sertraline [From Zoloft] Allergy Rash/Hives Verified 08/28/16 12:55 tomato Allergy Unknown Verified 08/28/16 12:55 Physical Exam Vitals: Vital Signs Temp Pulse Pulse Resp BP BP Pulse Ox 08/28/16 17:22 98.4 F 82 17 165/77 93 L 08/28/16 16:45 76 20 164/71 99 08/28/16 16:07 97.8 F 78 16 200/96 99 08/28/16 15:30 70 16 208/126 99 08/28/16 15:00 72 18 147/76 97 08/28/16 13:50 98 16 136/76 95 08/28/16 13:03 91 16 145/79 98 08/28/16 12:35 81 16 127/75 96 08/28/16 12:30 92 16 135/69 97 08/28/16 12:25 87 16 146/83 98 08/28/16 12:22 97.0 F L 90 18 215/95 99 08/28/16 11:36 99.9 F H 88 16 233/99 97 Intake and Output 08/28/16 08/28/16 08/28/16 06:59 14:59 22:59 Other: Voiding Method Toilet # Voids 1 Weight 79.379 kg 84.2 kg Patient Weight 08/29/16 06:59 Weight 84.2 kg Results CBC & Chem 7: 08/28/16 13:18 08/28/16 13:18 Labs: Abnormal Lab Results - Last 24 Hours (Table) 08/28/16 08/28/16 08/28/16 Range/Units 13:18 13:18 17:24 PT 34.6 H (9.0-12.0) sec INR 3.6 H (<1.2) APTT 41.6 H (22.0-30.0) sec Sodium 135 L (137-145) mmol/L Glucose 115 H (74-99) mg/dL Total Protein 5.9 L (6.3-8.2) g/dL Urine Protein 1+ H (Negative) Ur Leukocyte Esterase Trace H (Negative) Urine Bacteria Rare H (None) /hpf
[2016-08-28 19:55] LABS: Creatine Kinase 40 U/L (30-135)
[2016-08-28 20:05] LABS: Creatine Kinase MB 0.6 ng/mL (0.0-2.4); Troponin I <0.012 ng/mL (0.000-0.034)
[2016-08-28] MEDS ORDERED: MELATONIN 5 MG TABLET PO SCH (21:00)
[2016-08-28] MEDS ORDERED: ATORVASTATIN 20 MG TAB PO SCH (21:00)
[2016-08-28] MEDS ORDERED: TRIAMCINOLONE 0.1% CREAM 80 GM TUBE TOPICAL SCH (21:00)
[2016-08-28] MEDS ORDERED: traMADol 50 MG TAB PO PRN (23:00)
[2016-08-28] MEDS: traMADol 50 MG TAB PO PRN (23:32)
[2016-08-29 02:35] LABS: Creatine Kinase 37 U/L (30-135)
[2016-08-29 02:49] LABS: Creatine Kinase MB 0.6 ng/mL (0.0-2.4); Troponin I <0.012 ng/mL (0.000-0.034)
[2016-08-29 03:12] LABS: Cholesterol 127 mg/dL (<200); HDL Cholesterol 43 mg/dL (40-60)
[2016-08-29] MEDS ORDERED: LEVOTHYROXINE 75 MCG TAB PO SCH (06:30)
[2016-08-29] MEDS: NITROGLYCERIN OINT 1 INCH/GM PACKET TOPICAL SCH (07:16)
[2016-08-29] MEDS ORDERED: ACARBOSE 25 MG TAB PO SCH (07:30)
[2016-08-29] MEDS ORDERED: PANTOPRAZOLE 40 MG TABLET PO SCH (07:30)
[2016-08-29] MEDS ORDERED: glipiZIDE 10 MG TAB PO SCH (07:30)
--- NOTE | 2016-08-29 08:07 | P.PN ---
Progress Note - Text The patient is an 85-year-old female who presented yesterday with complaints of recurrent left-sided chest pain. The pain has been somewhat pleuritic but there also is some chest wall tenderness associated with this. Patient does have history of chronic atrial fibrillation along with chronic diastolic congestive heart failure with an ejection fraction of 55-60% along with hypertensive heart disease and underlying diabetes and COPD. Patient still has had left chest pain. She has had some analgesics intermittently. Vital signs reveal temperature of 97.7 with a pulse of 71 respirations 18. Blood pressure 114/58 and she is 94% saturated on room air. Head and neck exam unremarkable. Lung and heart exam is clear. Heart rate irregular but rate controlled. There was some tenderness under the left breast at the lateral aspect of the left chest. Abdomen is soft and nontender. No unusual edema or focal neurological changes. Laboratory results: Troponins have been less than 0.0123. LDL cholesterol was 65. Total cholesterol is only 127. Triglycerides also are good at 95. CKs have remained low at 40 or less. Impressions and plans: Discussed with patient and nursing staff this morning. Awaiting further recommendations from cardiology this morning. On presentation patient INR was mildly elevated at 3.6 and her Coumadin yesterday has been held. She will likely need a somewhat lower dose for maintenance on discharge. Along with analgesics for pain if needed.
[2016-08-29] MEDS ORDERED: NON-FORMULARY DRUG (Lutein [Lutein] 10 MG) PO SCH (09:00)
[2016-08-29] MEDS ORDERED: DIGOXIN 125 MCG TAB PO SCH (09:00)
[2016-08-29] MEDS ORDERED: LOSARTAN 50 MG TAB PO SCH (09:00)
[2016-08-29] MEDS ORDERED: FUROSEMIDE 20 MG TAB PO SCH (09:00)
[2016-08-29] MEDS ORDERED: NON-FORMULARY DRUG (Omega-3 Fatty Acids/Fish Oil [Fish Oil 1,000 Mg Softgel] 1 CAP) PO SCH (09:00)
[2016-08-29] MEDS ORDERED: NON-FORMULARY DRUG (Biotin [Biotin] 5 MG) PO SCH (09:00)
[2016-08-29] MEDS ORDERED: ASPIRIN 325 MG TAB PO SCH (09:00)
[2016-08-29] MEDS ORDERED: NON-FORMULARY DRUG (Glucosam/Chon-Msm1/C/Mang/Bosw [Glucosamine-Chondroitin Tablet] 1 TAB) PO SCH (09:00)
[2016-08-29] MEDS: traMADol 50 MG TAB PO PRN (10:34)
[2016-08-29 11:32] VITALS: BP 140/64; PULSE 77; RESP 17; TEMP 97.8
[2016-08-29] MEDS ORDERED: LACTOBACILLUS ACIDOPH & BULGAR 1 EACH PACKET PO SCH (12:00)
[2016-08-29] MEDS ORDERED: ASCORBIC ACID 500 MG TAB PO SCH (12:00)
[2016-08-29] MEDS ORDERED: MULTIVITAMINS, THERA 1 EACH TAB PO SCH (12:00)
[2016-08-29] MEDS ORDERED: METOPROLOL SUCCINATE (ER) 50 MG TAB.ER.24H PO SCH (17:30)
[2016-08-29] MEDS ORDERED: WARFARIN 5 MG TAB PO SCH (18:00)
--- NOTE | 2016-08-29 21:53 | CONS ---
This is an 85-year-old elderly lady who came into the hospital with complaints of sharp pain in the left side of the chest. Seems to have a lot of pleuritic component. The quality of pain has resolved completely. She sees Dr. Salazar in the outpatient setting. She is known to have chronic atrial fibrillation. She has been on Coumadin, and her PT and INR were slightly high, so we will reduce the dose on this visit. She is resting comfortably without symptoms. Her last echocardiogram from April of this year showed normal systolic function. She is asymptomatic and resting without symptoms. Her pleuritic pain seems to occur only with some deep breathing, and even this has improved. PAST MEDICAL HISTORY: 1. Chronic atrial fibrillation. 2. Diastolic dysfunction by history with a preserved ejection fraction. 3. Hypertension. 4. Hyperlipidemia. 5. Type 2 diabetes mellitus. 6. History of COPD. ALLERGIES: ZOLOFT. Medications at home include: 1. Coumadin. 2. Glipizide. 3. Melatonin. 4. Losartan. 5. Levothyroxine. 6. Atorvastatin. On examination, blood pressure is 118/70. Pulse rate is 70 per minute, irregular. HEENT: Unremarkable. Fundus was not examined by me. Neck is supple. JVD of 1 cm. No carotid bruit. Heart exam reveals S1, S2 with irregular rhythm, short systolic murmur. Lungs are clear. Abdomen is soft, non-tender. Lower extremities reveal diminished pulses. Central nervous system is normal. EKG revealed atrial fibrillation, non-specific ST-T changes, right ventricular conduction delay, rate controlled. IMPRESSION: 1. Atypical chest pain. 2. Chronic atrial fibrillation. 3. History of hypertension. 4. Type 2 diabetes mellitus. 5. Hypercholesterolemia. RECOMMENDATIONS: I am recommending that we resume her medications, increase her activity. If she has no further symptoms, she can be discharged and followed up with Dr. Valenzuela, her primary care physician, and Dr. Salazar. She is advised to call the office for an appointment in 2 weeks or so. Thank you very much for the consult. DOE
--- NOTE | 2016-09-05 21:53 | DS ---
Mrs. Ireland is an 86-year-old female who presented to the hospital with left- sided lower chest discomfort. Please refer to History and Physical. Patient has a history of heart disease with diastolic congestive heart failure, hypertension , hyperlipidemia, diabetes, and has multiple risk factors and underlying COPD. The patient was monitored on Observation. Consultation obtained with Cardiology , Dr. Sylvain Talamantes. Please refer to his notes. Serial EKGs, lab work and enzymes were performed. Her INR was slightly supratherapeutic at 3.6. CBC on presentation was unremarkable with a white count of 6.8, hemoglobin 12.1, and platelet count of 199. Blood sugar was 115 and sodium was 135. Total protein was slightly low at 5.9, albumin normal at 3.6. Once again, troponins were repeated x3 and were all less than 0.012. Her CKs remained 40 or less and cholesterol values revealed a total cholesterol of 127. Her LDL cholesterol was down to 65, triglycerides 95 and HDL cholesterol 43. Urinalysis was pretty much negative except for trace leukocyte esterase. Her EKG revealed atrial fibrillation, initially with slightly rapid response, although this improved. There was somewhat incomplete right bundle branch block and non-specific changes , but no definite ischemic changes were noted. Patient had had an echocardiogram done in April, earlier this year, and her chest x-ray did not show any acute changes. Once again, she was seen by Cardiology, who did not feel her chest pain was related to coronary artery disease. On examination, she had some chest wall tenderness and discomfort. At this point, plans are to discharge her back to home with followup with myself and Dr. Salazar from Cardiology, whom she sees as an outpatient. She will continue home medications with: 1. Acarbose 50 mg with breakfast and supper. 2. Vitamin C 500 mg daily. 3. Lipitor 20 mg at bedtime. 4. Biotin 5 mg capsule daily. 5. Digoxin 0.125 mcg daily. 6. Nexium 40 mg daily. 7. Lasix 20 mg daily. 8. Glucosamine chondroitin 1 tablet daily. 9. Hydrocortisone cream 2.5% twice a day to affected areas. 10. Probiotic daily. 11. Levothyroxine 75 mcg daily. 12. Losartan 100 mg daily. 13. Lutein 10 mg daily. 14. Melatonin 2.5 at night for sleep. 15. Metoprolol 50 mg with supper. (Toprol XL) 16. Multiple vitamins daily. 17. [place]-3 fatty acids/fish oil 1 daily. 18. Coumadin was decreased to 5 mg daily. 19. Glipizide XL 10 mg at breakfast. FINAL DISCHARGE DIAGNOSES: 1. Chest pain related to costochondritis with underlying history of chronic diastolic congestive heart failure with previous ejection fraction of 55% to 60% . 2. Hypertensive heart disease. 3. Type 2 diabetes. 4. Underlying chronic obstructive pulmonary disease. 5. Hyperlipidemia. 6. Hypothyroidism, on replacement therapy. 7. History of atrial fibrillation, for which she is on Coumadin. Activities should be somewhat curtailed over the next week. Follow up with Cardiology. Call with any questions, concerns or problems. DOE
== END 2016-08-29 12:15 | disposition home or self-care (01) ==
LOC: EC 11:34 → 3OBS 15:16
PROVIDERS: ADMIT Internal Medicine; ATTEND Internal Medicine
DX: R07.89 Other chest pain (principal); M94.0 Chondrocostal junction syndrome [Tietze]; I48.2 Chronic atrial fibrillation; I50.32 Chronic diastolic (congestive) heart failure; I11.0 Hypertensive heart disease with heart failure; E11.9 Type 2 diabetes mellitus without complications; J44.9 Chronic obstructive pulmonary disease, unspecified; E78.5 Hyperlipidemia, unspecified; E03.9 Hypothyroidism, unspecified; E78.00 Pure hypercholesterolemia, unspecified; Z79.01 Long term (current) use of anticoagulants; Z79.82 Long term (current) use of aspirin; Z79.84 Long term (current) use of oral hypoglycemic drugs; Z79.899 Other long term (current) drug therapy; Z91.011 Allergy to milk products; Z88.8 Allergy status to other drugs, medicaments and biological substances; Z91.018 Allergy to other foods; Z87.891 Personal history of nicotine dependence
CPT/HCPCS: 96361 ×3; 96360; 99285; 36415; 93005; 80061; 80053; 82550 ×2; 82553 ×2; 83735; 84484 ×2; 85025; 85610; 85730; 81001; 71020; G0378 ×2

== ENCOUNTER → 2017-07-11 | Outpatient (CLI) | payer MEDICARE, OTHER ==
[2017-07-11 11:50] LABS: HCT 36.8 % (34.0-46.0); HGB 12.1 gm/dL (11.4-16.0); MCH 30.4 pg (25.0-35.0); MCHC 32.8 g/dL (31.0-37.0); MCV 92.7 fL (80.0-100.0); Mean Platelet Volume 6.8; Platelet Count 200 k/uL (150-450); RBC 3.97 m/uL (3.80-5.40); WBC 5.6 k/uL (3.8-10.6)
[2017-07-11 12:07] LABS: Albumin 4.1 g/dL (3.5-5.0); Calcium 9.5 mg/dL (8.4-10.2); Potassium 4.8 mmol/L (3.5-5.1); Total Protein 6.2 g/dL (6.3-8.2)
[2017-07-11 17:33] LABS: Hemoglobin A1C 7.3 % (4.0-6.0)
== END | disposition home or self-care (01) ==
LOC: LABWHC1 10:45
PROVIDERS: ATTEND Internal Medicine
DX: E11.65 Type 2 diabetes mellitus with hyperglycemia (principal); I48.0 Paroxysmal atrial fibrillation; E78.4 Other hyperlipidemia; E87.8 Other disorders of electrolyte and fluid balance, not elsewhere classified; R53.83 Other fatigue
CPT/HCPCS: 36415; 80053; 80061; 80162; 83036; 84443; 85027

== ENCOUNTER → 2018-01-15 | Outpatient (CLI) | payer MEDICARE, OTHER ==
[2018-01-15 11:37] LABS: HCT 38.6 % (34.0-46.0); HGB 12.3 gm/dL (11.4-16.0); MCH 30.1 pg (25.0-35.0); MCHC 31.8 g/dL (31.0-37.0); MCV 94.7 fL (80.0-100.0); Mean Platelet Volume 7.7; Platelet Count 242 k/uL (150-450); RBC 4.08 m/uL (3.80-5.40); RDW 13.6 % (11.5-15.5)
[2018-01-15 15:54] LABS: Anion Gap 8.7 mmol/L (4.00-12.00); Calcium 9.5 mg/dL (8.7-10.3); Carbon Dioxide 29.3 mmol/L (21.6-31.8); LDL Cholesterol,Calculated 87.6 mg/dL (0.0-131.0); Potassium 4.6 mmol/L (3.5-5.5); VLDL Calculation 20.4 mg/dL (5.00-40.00)
[2018-01-15 18:23] LABS: Hemoglobin A1C 6.6 % (4.0-6.0)
== END | disposition home or self-care (01) ==
LOC: LABWHC1 09:58
PROVIDERS: ATTEND Internal Medicine
DX: E78.41 Elevated Lipoprotein(a) (principal); R53.83 Other fatigue; E11.69 Type 2 diabetes mellitus with other specified complication
CPT/HCPCS: 36415; 80048; 80061; 83036; 84443; 85027

== ENCOUNTER → 2018-04-04 | Outpatient (CLI) | payer MEDICARE | LOC: LABWHC1 11:27 | PROVIDERS: ATTEND Internal Medicine | DX: E03.9 Hypothyroidism, unspecified (principal) | CPT/HCPCS: 36415; 84443 ==